=== PATIENT | female | born 1955 | race Caucasian/White ===

== ENCOUNTER → 2018-05-18 | Outpatient (CLI) | payer MEDICARE ==
--- NOTE | 2018-05-18 13:47 | BD ---
EXAMINATION TYPE: Axial Bone Density DATE OF EXAM: 05/18/2018 COMPARISON: 11/12/2015 CLINICAL HISTORY: Osteoporosis per order. Height: 65 IN Weight: 210 LBS FRAX RISK QUESTIONS: Rheumatoid Arthritis: YES RISK FACTORS HISTORY OF: Surgery to Spine: L SPINE When: AGE 51 AND 62 Family History of Osteoporosis: MOTHER Active: YES Postmenopausal woman: AGE 51 MEDICATIONS: Prednisone or other steroids: YES PREDNISONE 10 MG FOR 5 WEEKS. ALSO GETS A METHYLPREDNISONE SHOT E VERY 3 MONTHS. Thyroid Medications: YES Which medication: Levothyroxine How Lon+ YEARS Additional Medications: PREDNISONE 10 MG.(ONLY 1 WEEK LEFT), LEVOTHYROXINE, METHOTREXATE, PAXIL, HYZ AAR, FOLIC ACID, VITAMIN, EXAM MEASUREMENTS: Bone mineral densitometry was performed using the [employer] System. Bone mineral density about the R hip (g/cm2): 0.931 Bone mineral density about the L hip (g/cm2): 0.876 T Score values are as follows: -----R Neck: -0.8 -----L Neck: -1.2 -----R Total: -0.3 -----L Total: -0.8 Bone mineral density has: Decreased -2.7% since study of: 11/12/2015 Bone mineral density about the L Wrist (g/cm2): 0.610 T Score values are as follows: -----Dist. R+U: -2.3 -----Prox. R+U: -0.6 -----Radius total: -1.1 Bone mineral density BASELINE IMPRESSION: Osteopenia (T Score between -2.5 and -1) remains present. There remains slightly increased risk of fracture and the patient may be considered for treatment. Re-Screen 2-5 years. NOTE: T-SCORE=SD OF THE YOUNG ADULT MEAN.
--- NOTE | 2018-05-19 11:18 | MM ---
Reason for exam: screening (asymptomatic). Last mammogram was performed 2 years and 6 months ago. History: Patient is postmenopausal. Excisional biopsy of the left breast, 1989. Took hormonal contraceptives for 6 months. Physical Findings: A clinical breast exam by your physician is recommended on an annual basis and results should be correlated with mammographic findings. MG Screening Mammo w CAD Bilateral CC and MLO view(s) were taken. Prior study comparison: November 12, 2015, bilateral MG screening mammo w CAD. February 24, 2012, bilateral digital screening mammo w/CAD. There are scattered fibroglandular densities. No suspicious abnormality. No significant changes when compared with prior studies. ASSESSMENT: Negative, BI-RAD 1 RECOMMENDATION: Routine screening mammogram of both breasts in 1 year.
== END | disposition home or self-care (01) ==
LOC: RADMAMWWP 08:35
PROVIDERS: ATTEND Family Medicine
DX: Z12.31 Encounter for screening mammogram for malignant neoplasm of breast (principal); M85.80 Other specified disorders of bone density and structure, unspecified site; M81.0 Age-related osteoporosis without current pathological fracture
CPT/HCPCS: 77067; 77080

== ENCOUNTER 2018-10-03 09:54 | Day surgery (SDC) | payer MEDICARE ==
[2018-09-29 14:04] VITALS: BMI 34.9
[~2018-10-03 09:54] MED LIST: LACTATED RINGERS 1,000 ML IV SCH; LIDOCAINE 1% 20 ML VIAL (10MG/ML) FOR IV START INTRADERMA PRN
[2018-10-03 10:16] VITALS: RESP 16; TEMP 98.6
[2018-10-03] MEDS ORDERED: PROPOFOL 10 MG/ML 20 ML VIAL IV ONE (11:01)
--- NOTE | 2018-10-03 11:02 | P.GSHP ---
History of Present Illness H&P Date: 10/03/18 Chief Complaint: Screening colonoscopy, family history of colon cancer This is a 63-year-old female who presents today for colonoscopy. Patient has a family history of colon cancer. Her brother has colon cancer. His last colonoscopy was over 8 years ago. Past Medical History Past Medical History: Hypertension, Rheumatoid Arthritis (RA), Thyroid Disorder History of Any Multi-Drug Resistant Organisms: None Reported Past Surgical History: Back Surgery Additional Past Surgical History / Comment(s): COLONOSCOPY. LUMBAR FUSION X2. Past Anesthesia/Blood Transfusion Reactions: No Reported Reaction Smoking Status: Former smoker - Past Family History Brother(s) Family Medical History: Cancer Additional Family Medical History / Comment(s): COLON CA Medications and Allergies Home Medications Medication Instructions Recorded Confirmed Type Krill Oil 1,000 mg PO DAILY 09/29/18 10/03/18 History Levothyroxine Sodium [Levoxyl] 125 mcg PO DAILY 09/29/18 10/03/18 History Losartan/Hydrochlorothiazide 1 each PO DAILY 09/29/18 10/03/18 History [Hyzaar 50-12.5 Tablet] Meloxicam [Mobic] 7.5 mg PO DAILY 09/29/18 10/03/18 History Methotrexate Sodium [Methotrexate] 8 tab PO MO 09/29/18 10/03/18 History Multivitamins, Thera [Multivitamin 1 tab PO DAILY 09/29/18 09/29/18 History (formulary)] PARoxetine HCL [Paxil] 40 mg PO DAILY 09/29/18 10/03/18 History Allergies Allergy/AdvReac Type Severity Reaction Status Date / Time No Known Allergies Allergy Verified 10/03/18 10:08 Surgical - Exam Vital Signs Temp Pulse Resp BP Pulse Ox 98.6 F 61 16 193/83 97 10/03/18 10:15 10/03/18 10:15 10/03/18 10:15 10/03/18 10:15 10/03/18 10:15 - General well developed, well nourished, no distress - Eyes PERRL - ENT normal pinna - Neck no masses - Respiratory normal expansion - Cardiovascular Rhythm: regular - Abdomen Abdomen: soft, non tender Assessment and Plan Assessment: We'll perform colonoscopy.
--- NOTE | 2018-10-03 11:19 | P.OP ---
Date of Procedure: 10/03/18 Preoperative Diagnosis: Screening colonoscopy Family history of colon Cancer Postoperative Diagnosis: Normal colonoscopy, poor prep Procedure(s) Performed: Colonoscopy Anesthesia: MAC Surgeon: Yusuf Lindo Pathology: none sent Condition: stable Disposition: PACU Description of Procedure: The patient's placed on the endoscopy table in the lateral position. She received IV sedation. Digital rectal exam was performed which revealed no abnormalities. The flexible colonoscope was then placed patient anus and passed throughout the entire colon. The colon prep was very poor. There was a large amount liquid stool. The cecum, ascending and transverse colon appeared normal. The descending and sigmoid colon appeared normal. The scope was then brought back the rectum and this appeared normal. The colonoscopy appeared normal. However there was a very poor colon prep with large amount liquid stool throughout the colon. This limited the view of the mucosa. The scope was withdrawn from patient.
[2018-10-03 11:53] VITALS: BP 163/81; PULSE 67
== END 2018-10-03 11:59 | disposition home or self-care (01) ==
LOC: ORWHC2ENDO 09:54
PROVIDERS: ATTEND Surgery
DX: Z12.11 Encounter for screening for malignant neoplasm of colon (principal); I10 Essential (primary) hypertension; M06.9 Rheumatoid arthritis, unspecified; Z79.899 Other long term (current) drug therapy; Z80.0 Family history of malignant neoplasm of digestive organs; Z87.891 Personal history of nicotine dependence

== ENCOUNTER → 2019-06-08 | Outpatient (CLI) | payer MEDICARE ==
--- NOTE | 2019-06-09 12:14 | MM ---
Reason for exam: screening (asymptomatic). Last mammogram was performed 1 year and 1 month ago. History: Patient is postmenopausal. Excisional biopsy of the left breast, 1989. Took hormonal contraceptives for 6 months. Physical Findings: A clinical breast exam by your physician is recommended on an annual basis and results should be correlated with mammographic findings. MG 3D Screening Mammo W/Cad Bilateral CC and MLO view(s) were taken. Prior study comparison: May 18, 2018, bilateral MG screening mammo w CAD. November 12, 2015, bilateral MG screening mammo w CAD. There are scattered fibroglandular densities. No suspicious abnormality. No significant changes when compared with prior studies. ASSESSMENT: Negative, BI-RAD 1 RECOMMENDATION: Routine screening mammogram of both breasts in 1 year. Manage on a clinical basis with regard to chronic left nipple pain and right axillary lesion drained yesterday. Patient following with a surgeon. Ultrasound could be considered.
== END | disposition home or self-care (01) ==
LOC: RADMAMWWP 07:57
PROVIDERS: ATTEND Family Medicine
DX: Z12.31 Encounter for screening mammogram for malignant neoplasm of breast (principal)
CPT/HCPCS: 77063; 77067

== ENCOUNTER → 2019-08-28 | Outpatient (CLI) | payer MEDICARE ==
[2019-08-28 17:55] LABS: HCT 41.5 % (34.0-46.0); HGB 13.5 gm/dL (11.4-16.0); MCH 29.4 pg (25.0-35.0); MCHC 32.6 g/dL (31.0-37.0); MCV 90.3 fL (80.0-100.0); Mean Platelet Volume 7.5; Platelet Count 304 k/uL (150-450); RBC 4.59 m/uL (3.80-5.40); WBC 12.2 k/uL (3.8-10.6)
[2019-08-28 18:04] LABS: INR 0.9 (<1.2); Partial Thromboplastin Time 24.4 sec (22.0-30.0); Prothrombin Time 9.7 sec (9.0-12.0)
[2019-08-28 18:10] LABS: ALT 19 U/L (4-34); AST 30 U/L (14-36); African American GFR (CKD) >90 (>60 ml/min/1.73 sqM); Albumin 4.7 g/dL (3.5-5.0); Alkaline Phosphatase 84 U/L (38-126); Anion Gap 9 mmol/L; Blood Urea Nitrogen 18 mg/dL (7-17); Calcium 10.1 mg/dL (8.4-10.2); Carbon Dioxide 29 mmol/L (22-30); Chloride 104 mmol/L (98-107); Glucose 84 mg/dL (74-99); Non-African American GFR(CKD) >90 (>60 ml/min/1.73 sqM); Potassium 3.5 mmol/L (3.5-5.1); Sodium 142 mmol/L (137-145); Total Bilirubin 0.3 mg/dL (0.2-1.3); Total Protein 7.4 g/dL (6.3-8.2)
== END | disposition home or self-care (01) ==
LOC: LABPAT 16:21
PROVIDERS: ATTEND Orthopaedic Surgery Sports Medicine
DX: Z01.812 Encounter for preprocedural laboratory examination (principal); M17.12 Unilateral primary osteoarthritis, left knee; Z51.81 Encounter for therapeutic drug level monitoring
CPT/HCPCS: 80053; 85027; 85610; 85730; 87070

== ENCOUNTER 2019-09-06 10:47 | Day surgery (SDC) | payer MEDICARE ==
[2019-08-31 14:01] VITALS: BMI 33.9
[~2019-09-06 10:47] MED LIST changes: +ACETAMINOPHEN TAB 500 MG TAB PO ONE; +GABAPENTIN 300 MG CAP PO ONE; -LACTATED RINGERS 1,000 ML IV SCH; -LIDOCAINE 1% 20 ML VIAL (10MG/ML) FOR IV START INTRADERMA PRN; +MELOXICAM 7.5 MG TAB PO ONE; +ONDANSETRON 4 MG/2 ML VIAL IVP ONE; +ROPIVACAINE 246.25 MG, EPINEPHrine 0.5 MG, KETOROLAC 30 MG, cloNIDine HCL/PF 80 MCG, WA... MISCELLANE ONE; +TRANEXAMIC ACID 1,000 MG in SODIUM CHLORIDE 0.9% 100 ML IVPB ONE
[2019-09-06] MEDS ORDERED: LIDOCAINE 1% 20 ML VIAL (10MG/ML) FOR IV START INTRADERMA ONE (11:29)
[2019-09-06] MEDS ORDERED: LACTATED RINGERS 1,000 ML IV ONE ×2 (11:29→13:56)
[2019-09-06] MEDS ORDERED: DEXAMETHASONE SOD PHOSPHATE 10 MG/ML 1 ML VIAL IV ONE (11:30)
[2019-09-06] MEDS ORDERED: MIDAZOLAM 2 MG/2 ML VIAL IV ONE (11:43)
[2019-09-06] MEDS ORDERED: ROPIVACAINE 0.2%-NS ON-Q PUMP 1,090 MG, EMPTY PAIN BALL 1 EACH MISCELLANE PRN (11:59)
--- NOTE | 2019-09-06 12:01 | P.ANPRN ---
Procedure Note - Anesthesia - Nerve Block Performed Left Adductor Canal Infusion Time Out Performed: Yes Date of Procedure: 09/06/19 Procedure Start Time: 11:43 Procedure Stop Time: 11:54 Location of Patient: PreOp Indication: Acute Post-Operative Pain, Requested by Surgeon Sedation Type: Sedate with meaningful contact maintained Preparation: Sterile Prep, Sterile Dressing Position: Supine Catheter: Indwelling Needle Types: Pajunk Needle Gauge: 21 Ultrasound used to visualize needle placement: Yes Ultrasound used to observe medication spread: Yes Blood Aspirated: No Pain Paresthesia on Injection Noted: No Resistance on Injection: Normal Image Stored and Saved: Yes Events: Uneventful and Well Tolerated (ropi .5% 20cc plus dexamethasone 4mg)
[2019-09-06] MEDS ORDERED: NA PHOS,M-B/NA PHOS,DI-BA 133 ML ENEMA RECTAL PRN (12:07)
[2019-09-06] MEDS ORDERED: ONDANSETRON 4 MG/2 ML VIAL IVP PRN (12:07)
[2019-09-06] MEDS ORDERED: HYDROmorphone 0.5 MG/0.5 ML SYRINGE IVP PRN ×2 (12:07)
[2019-09-06] MEDS ORDERED: HYDROcodone/APAP 5-325MG 1 EACH TAB PO PRN (12:07)
[2019-09-06] MEDS ORDERED: traMADol 50 MG TAB PO PRN (12:07)
[2019-09-06] MEDS ORDERED: NALOXONE 0.4 MG/ML 1 ML VIAL IV PRN (12:07)
[2019-09-06] MEDS ORDERED: HYDROmorphone 1 MG/ML 1 ML SYRINGE IVP PRN (12:07)
[2019-09-06] MEDS ORDERED: ACETAMINOPHEN TAB 325 MG TAB PO PRN (12:07)
[2019-09-06] MEDS ORDERED: BISACODYL 10 MG SUPP RECTAL PRN (12:07)
[2019-09-06] MEDS ORDERED: MAGNESIUM HYDROXIDE 2,400 MG/10 ML CUP PO PRN (12:07)
[2019-09-06] MEDS ORDERED: DIAZEPAM 5 MG TAB PO PRN (12:07)
[2019-09-06] MEDS ORDERED: MIDAZOLAM 2 MG/2 ML VIAL ONE (12:29)
[2019-09-06] MEDS ORDERED: hydrALAZINE HCL 20 MG/ML 1 ML VIAL ONE (12:29)
[2019-09-06] MEDS ORDERED: TRANEXAMIC ACID 1,000 MG/10 ML VIAL ONE (12:29)
[2019-09-06] MEDS ORDERED: PROPOFOL 10 MG/ML 20 ML VIAL IV ONE (12:29)
[2019-09-06] MEDS ORDERED: LABETALOL 5 MG/ML VIAL MDV ONE (12:29)
[2019-09-06] MEDS ORDERED: ceFAZolin 3,000 MG in SODIUM CHLORIDE 0.9% IRRIGATIO 3,000 ML IRRIGATION ONE (12:29)
[2019-09-06] MEDS ORDERED: NEOSTIGMINE 1 MG/ML 10 ML VIAL ONE (12:29)
[2019-09-06] MEDS ORDERED: ROCURONIUM BROMIDE 10 MG/ML 10 ML VIAL IV ONE (12:29)
[2019-09-06] MEDS ORDERED: fentaNYL (PF) 50 MCG/ML 2 ML AMP ONE (12:29)
[2019-09-06] MEDS ORDERED: SUCCINYLCHOLINE CHLORIDE 100 MG/5 ML SYR IV ONE (12:29)
[2019-09-06] MEDS ORDERED: GLYCOPYRROLATE 0.2 MG/ML 2 ML VIAL ONE (12:29)
[2019-09-06] MEDS ORDERED: SODIUM CHLORIDE 0.9% 100 ML BAG ONE (12:29)
[2019-09-06] MEDS: HYDROmorphone 1 MG/ML 1 ML SYRINGE IVP ONE ×2 (15:31→15:42)
--- NOTE | 2019-09-06 15:42 | XR ---
EXAMINATION TYPE: XR knee limited LT DATE OF EXAM: 09/06/2019 CLINICAL HISTORY: Left knee pain and arthritis status post total knee replacement. TECHNIQUE: Portable AP and crosstable lateral views of the left knee are obtained immediately postop eratively. COMPARISON: None FINDINGS: Metallic hardware from total left knee arthroplasty is seen and appears satisfactory in al ignment and position. There is evidence of recent surgery with diffuse subcutaneous gas soft tissue swelling noted. IMPRESSION: METALLIC HARDWARE FROM TOTAL LEFT KNEE ARTHROPLASTY IS SATISFACTORY IN ALIGNMENT.
[2019-09-06] MEDS: LACTATED RINGERS 1,000 ML IV SCH ×2 (16:20→23:48)
[2019-09-06] MEDS: PARoxetine 20 MG TAB PO SCH (17:33)
[2019-09-06] MEDS: ASPIRIN 325 MG TAB PO SCH (20:26)
[2019-09-06] MEDS ORDERED: SENNOSIDES-DOCUSATE SODIUM 1 EACH TAB PO SCH (21:00)
[2019-09-06] MEDS ORDERED: TEMAZEPAM 15 MG CAP PO PRN (21:00)
--- NOTE | 2019-09-06 23:56 | OP ---
OPERATIVE REPORT DATE OF PROCEDURE: 09/06/2019 SURGEON: Faisal Delacruz MD DIGITAL MARKETING COORDINATOR: Luis Johnson PA-C. PREOPERATIVE DIAGNOSIS: Left knee osteoarthrosis. POSTOPERATIVE DIAGNOSIS: Left knee osteoarthrosis. OPERATION: Left total knee arthroplasty. ANESTHESIA: General endotracheal. ESTIMATED BLOOD LOSS: 400 mL. TOURNIQUET: Tourniquet time was 18 minutes at 250 mmHg. COMPLICATIONS: None apparent. DRAINS: None. DISPOSITION: Post-Anesthesia Care Unit. INDICATIONS: Odilia is a very pleasant 64-year-old female with longstanding history of left knee pain. History and physical examination are consistent with advanced left knee osteoarthrosis. She has been through significant nonoperative management up to this point. Further treatment options were discussed, and she decided to go forward with left total knee arthroplasty. The risks of the procedure were discussed with her in detail. These risks include but are not limited to risk of infection, nerve damage, bleeding, pain, and a risk of deep vein thrombosis which could lead to fatal pulmonary embolism. There is also a risk of loosening of the implant which could require revision operation. The patient understands these risks. All of her questions were answered to her satisfaction. Appropriate informed consent was obtained. DESCRIPTION OF THE PROCEDURE: The patient was identified in the preoperative holding area. Surgical site was marked by both the patient and myself. She was given 2 grams of Ancef IV for prophylactic purposes. She was then transferred to the operative suite, where she was placed supine on the operating room table. Spinal anesthetic was then administered and dosed per the anesthesia department without apparent complication. Examination under anesthesia was then performed. The patient had a fairly significant flexion contracture of about 5 to 10 degrees. She had 90 degrees of flexion, and the medial collateral ligament, lateral collateral ligament and posterior cruciate ligaments were stable. The tourniquet was then placed high on the left upper thigh, well padded in preparation for surgery. The patient's left lower extremity was then prepped and draped in the usual sterile fashion. A standard surgical pause was then undertaken to ensure that we were operating on the correct site and that appropriate preoperative antibiotics had been given. All staff in the room were in agreement and we proceeded. The outlines of the patella were marked with a surgical pen. A planned 12 cm vertical incision centered over the patella was marked with a surgical pen. The incision was then made with a 10-blade scalpel. Dissection was carried down sharply to the overlying fascia. Great care was taken to minimize the skin flaps. The knee was then exposed using a standard medial parapatellar approach. A small cuff of quadriceps tendon was then left for suturing. Hemostasis was achieved with the electrocautery. She was in a quite a bit of valgus preoperatively. A very minimal to no medial release was then made. Just enough was made to place the medial retractors. The medial meniscus was then excised as well. The lateral meniscus was also released anteriorly. The leg was then externally rotated. The patella was everted. The knee was flexed. The retractors were then placed to protect the collateral ligaments. I then proceeded to remove the infrapatellar fat pad. This was excised sharply tangentially with the fibers of the patellar tendon. I then proceeded to remove the peripheral osteophytes. This was done with a rongeur. I then proceeded with the distal femoral resection. She did have a fairly significant flexion contracture. A planned 11 mm resection was then done. The femoral canal was then entered in the midline of the femur approximately 10 mm anterior to the origin of the posterior cruciate ligament. The kareen was then advanced down to the center of the femur and placed intramedullary. Based on the preoperative radiographs, the angle between the anatomic and mechanical axes of the femur was approximately 4 to 5 degrees. The valgus angle of the distal femoral cutting guide was then set at 4 degrees for the left knee. The distal femoral cutting guide was then advanced over the intramedullary kareen. This was seated firmly against the femur. I then, as mentioned, planned to take 11 mm off the distal femur. The cutting block was then secured onto the femur with pins. The jig was removed and the distal femoral cut was made through the slot of the block. The pins were then removed and the distal femoral cutting block was removed. The accuracy of the distal femoral cuts was checked with 2 flat bars. I then proceeded with femoral sizing. The posterior referencing sizing guide was held firmly against the resected distal surface of the femur. The posterior condyles were resting on the posterior plane of the guide. The sizing stylus was then placed onto the anterior femur. The size was measured as a size 8. I then assessed for femoral rotation. The plan was for 3 degrees of external rotation. Three degrees of external rotation was placed onto the jig. These holes were then marked. I then confirmed the rotation by 3 separate methods. This was done using the epicondylar axis as well as Whitesides line and posterior referencing. It was deemed that the external rotation was proper. I then went forward with placing the femoral cutting block. This was placed over the previously placed pin holes. The Jose G wing was then placed onto the anterior slots to ensure that we would not notch the anterior femur with the anterior femoral cut. I then proceeded with the anterior femoral cut. This was flush with the anterior cortex of the femur. The posterior cuts were then made followed by the anterior chamfer cut and then the posterior chamfer cuts. The cutting block was then removed. Throughout the resection, the collateral ligaments were protected with retractors. I then placed a trial size 8 femur. It fit very nicely medial to lateral and fit flush with the distal end of the femur. The drill holes were then made. I then proceeded with the tibial cut. I planned for a cruciate-retaining knee. The guide was placed and set for varus, valgus and for slope. The height was set for an approximate 2 mm resection from the lateral tibial plateau, which was the lower side. I was happy with the alignment and the amount of resection. The cutting block was then pinned to the proximal tibia. The alignment kareen was removed and the proximal tibia was resected with a reciprocating saw. Again this was done with retractors protecting the collateral ligaments as well as the posterior cruciate ligament. I then proceeded to evaluate the flexion and extension gaps. A 10 mm block was then placed. The flexion and extension gaps were equal. I then proceeded with resection of the posterior osteophytes. She had very extensive posterior osteophytes. This was done using a curved osteotome. This resected the posterior osteophytes, and posterior capsule stripping was done off the posterior aspect of the femur. The osteophytes were then removed. I then proceeded with resection of the patella. The thickness of the patella was measured using the caliper. The thickness was 22 mm. The thickness of the anticipated patellar dome was then taken into account. The resection was then performed and confirmed to be equal in 4 quadrants using a caliper. Approximately 14 mm of bone remained after the resection. A 32 x 8.5 standard patellar trial was then placed. The holes were drilled and the trial was then placed. I then proceeded with sizing the tibial plate. A size D tibial plate fit very nicely. I then placed the trial femur, the tibial tray and the patellar button. A 10 mm trial insert was also placed. She was tight laterally. I then proceeded to piecrust the posterolateral capsule. I also released the superior portion of the iliotibial band off of the tibia. This balanced the knee much better. The components then fit very nicely. She has full extension and flexion. The extension and flexion gaps were equal and stable to both varus and valgus stress. The patella tracked appropriately. Tibial tray rotation was then marked with a Bovie. This was externally rotated properly. I then proceeded with tibial preparation. I first drilled the femoral holes and removed the femoral component. The tibial tray was then set for proper external rotation as well as mediolateral placement onto the tibia. It was then pinned into place. I then proceeded with punching the keel. I then decided to proceed with cementing of all of our components. The knee was thoroughly irrigated with sterile saline solution via pulse lavage. The lateral geniculate artery was identified and cauterized. All blood was removed from the bone of the tibia, femur and patella with pulse lavage. I then proceeded with cementing. Two packs of antibiotic bone cement were prepared on the back table by the surgical appliance fitter. I then proceeded with cementing of the tibia first. The cement was impacted into the keel as well as deeply seated into the bone. A second coat of cement was then placed. The tibia was then impacted into place. Excess cement was removed with Rachel's and Joker's. I then proceeded with cementing of the femoral component. The femoral component was also cemented using standard technique. Excess cement was removed. A 10 mm trial insert was then placed into the knee. It was brought into full extension with a constant axial load placed until the cement had hardened. The patellar component was then cemented. This was held firmly with a compressive device until the cement had dried. When the cement had dried, the knee was taken out of extension. All excess cement was removed from around the prosthesis. I then trialed the knee with a 10 mm insert. The flexion and extension gaps were appropriate. The knee was stable. It came into full extension. I decided to go forward with a 10 mm medial-congruent, cruciate-retaining tibial insert. Polyethylene was then placed onto the tibial tray and locked into place. The knee was then reduced. The knee was again further irrigated with sterile saline solution with antibiotic added. The tourniquet was then deflated. The total tourniquet time for the procedure was 18 minutes at 250 mmHg. Of note, the tourniquet was put up only for the cementing part of the case. Final components were a Nandini Persona size 8 cruciate-retaining femoral component, a size D tibial tray, a 10 mm medial-congruent, cruciate-retaining polyethylene insert, and a 32 x 8.5 patella. I then proceeded with closure. Again the knee was thoroughly irrigated. The quadriceps tendon and the medial retinaculum were reapproximated with a #2 Ethibond suture. The extensor mechanism was then closed with a running #2 Quill suture. Subcutaneous tissues were then closed with 2-0 Vicryl interrupted suture. The skin was closed with a running 3-0 Quill suture. Dermabond was applied to the incision. Sterile compressive dressings were then applied. All sponge and needle counts were deemed correct prior to closure. The patient tolerated the procedure without apparent complication. She was transferred to the recovery room in stable condition. MMODL / IJN: [id number] /
[2019-09-07] MEDS: HYDROcodone/APAP 10-325MG 1 EACH TAB PO PRN ×3 (00:21→11:20)
[2019-09-07] MEDS ORDERED: LEVOTHYROXINE 125 MCG TAB PO SCH (06:30)
[2019-09-07 07:40] LABS: Basophils # (A) 0.1 k/uL (0-0.2); Basophils % (A) 0 %; Eosinophils # (A) 0.1 k/uL (0-0.7); Eosinophils % (A) 0 %; HCT 29.6 % (34.0-46.0); Lymphocytes # (A) 1.2 k/uL (1.0-4.8); Lymphocytes % (A) 6 %; MCH 29.7 pg (25.0-35.0); MCHC 32.9 g/dL (31.0-37.0); MCV 90.2 fL (80.0-100.0); Mean Platelet Volume 7.4; Monocytes # (A) 0.6 k/uL (0-1.0); Monocytes % (A) 4 %; Neutrophils % (A) 88 %; Platelet Count 286 k/uL (150-450); RBC 3.28 m/uL (3.80-5.40); RDW 13.7 % (11.5-15.5); WBC 18.1 k/uL (3.8-10.6)
[2019-09-07 07:56] LABS: HGB 9.7 gm/dL (11.4-16.0)
[2019-09-07 08:36] VITALS: BP 126/60; PULSE 95; RESP 17; TEMP 98.8
[2019-09-07] MEDS: LACTATED RINGERS 1,000 ML IV SCH (08:48)
[2019-09-07] MEDS ORDERED: FOLIC ACID 1 MG TAB PO SCH (09:00)
[2019-09-07] MEDS ORDERED: PRAVASTATIN SODIUM 20 MG TAB PO SCH (09:00)
[2019-09-07] MEDS ORDERED: LOSARTAN-HCTZ 50-12.5 MG 1 EACH TAB PO SCH (09:00)
[2019-09-07] MEDS ORDERED: CHOLECALCIFEROL 1,000 UNIT TAB PO SCH (09:00)
--- NOTE | 2019-09-07 09:41 | P.PN ---
Progress Note - Text Progress Note Date: 09/07/19 Postoperative day # 1 status post total knee arthroplasty, under spinal anesthesia, and adductor canal catheter placed for postoperative analgesia, currently at ropivacaine 0.2% 8 mL per hour and continuous infusion, visual analogue scale is 3/10, patient using oral pain medication for breakthrough pain. Assessment and plan= Acute postoperative pain, adductor canal catheter for pain control, pain is well controlled we'll continue the same management.
--- NOTE | 2019-09-07 10:10 | P.DS ---
Providers Attending physician: Faisal Delacruz Consults: 09/06/19 16:22 Consult Physician Routine Consulting Provider: Mathew Hudson Consult Reason/Comments: medical management Do you want consulting provider notified?: Already Contacted Primary care physician: Evgeny Erickson - Discharge Diagnosis(es) (1) Status post total left knee replacement Patient was admitted to the OR on 09/06/2019 to undergo a left total knee a rthroplasty. She had failed conservative measures as an outpatient and desired to proceed with elective surgery after given informed consent. She underwent the above procedure which she tolerated well without complication. Postoperative hospital course has remained without complication. On day of discharge she is afebrile, vital signs stable, labs within acceptable ranges, tolerating by mouth meds and diet, voiding without difficulty, positive flatus, denies abdominal pain or calf pain, pain is controlled on oral pain medication and has no new complaints. Wound is benign, neurovascular status is intact, calf is soft and nontender, abdomen soft and nontender. Review of systems is negative for numbness, tingling, fever, chills, chest pain, shortness of breath, nausea, vomiting, dizziness, headaches, slurred speech or other Current Visit: Yes Status: Acute Priority: Medium Procedures: Left TKA Patient Condition at Discharge: Good Plan - Discharge Summary Discharge Rx Participant: Yes New Discharge Prescriptions: New Aspirin 325 mg PO BID #60 tab Docusate [Colace] 100 mg PO BID #60 capsule HYDROcodone/APAP 7.5-325MG [Hickman 7.5-325] 1 - 2 each PO Q6HR PRN #56 tab PRN Reason: Pain No Action Multivitamins, Thera [Multivitamin (formulary)] 1 tab PO DAILY Meloxicam [Mobic] 7.5 mg PO DAILY PARoxetine HCL [Paxil] 40 mg PO QAM Losartan/Hydrochlorothiazide [Hyzaar 50-12.5 Tablet] 1 each PO QAM Levothyroxine Sodium [Levoxyl] 125 mcg PO QAM Methotrexate Sodium [Methotrexate] 10 tab PO MO Cholecalciferol [Vitamin D3 (25 Mcg = 1000 Iu)] 2,000 unit PO DAILY Pravastatin Sodium [Pravachol] 20 mg PO DAILY Folic Acid 0.8 mg PO DAILY Acetaminophen Tab [Tylenol Tab] 325 - 650 mg PO Q4H PRN PRN Reason: Pain Discharge Medication List Levothyroxine Sodium [Levoxyl] 125 mcg PO QAM 09/29/18 [History] Losartan/Hydrochlorothiazide [Hyzaar 50-12.5 Tablet] 1 each PO QAM 09/29/18 [History] Meloxicam [Mobic] 7.5 mg PO DAILY 09/29/18 [History] Methotrexate Sodium [Methotrexate] 10 tab PO MO 09/29/18 [History] Multivitamins, Thera [Multivitamin (formulary)] 1 tab PO DAILY 09/29/18 [History] PARoxetine HCL [Paxil] 40 mg PO QAM 09/29/18 [History] Acetaminophen Tab [Tylenol Tab] 325 - 650 mg PO Q4H PRN 08/31/19 [History] Cholecalciferol [Vitamin D3 (25 Mcg = 1000 Iu)] 2,000 unit PO DAILY 08/31/19 [History] Folic Acid 0.8 mg PO DAILY 08/31/19 [History] Pravastatin Sodium [Pravachol] 20 mg PO DAILY 08/31/19 [History] Aspirin 325 mg PO BID #60 tab 09/07/19 [Rx] Docusate [Colace] 100 mg PO BID #60 capsule 09/07/19 [Rx] HYDROcodone/APAP 7.5-325MG [Hickman 7.5-325] 1 - 2 each PO Q6HR PRN #56 tab 09/07/19 [Rx] Follow up Appointment(s)/Referral(s): [facility], [NON-STAFF] - Faisal Delacruz MD [STAFF PHYSICIAN] - 09/18/19 1:00 pm Activity/Diet/Wound Care/Special Instructions: Keep wound clean and dry Take meds as directed Follow-up with Dr. Delacruz in office Weight bear as tolerated May shower in 3 days if no bleeding Discharge Disposition: HOME WITH HOME HEALTH SERVICES
[2019-09-07] MEDS: ASPIRIN 325 MG TAB PO SCH (10:15)
[2019-09-07] MEDS: PARoxetine 20 MG TAB PO SCH (10:16)
[2019-09-08] MEDS ORDERED: MULTIVITAMINS, THERA 1 EACH TAB PO SCH (12:00)
== END 2019-09-07 11:46 | disposition home health service (06) ==
LOC: OR 10:47 → 4SSUR 14:58 → OR 09-07 11:46
PROVIDERS: ATTEND Orthopaedic Surgery Sports Medicine
DX: M17.12 Unilateral primary osteoarthritis, left knee (principal); M21.062 Valgus deformity, not elsewhere classified, left knee; M25.762 Osteophyte, left knee; E03.9 Hypothyroidism, unspecified; I10 Essential (primary) hypertension; F32.9 Major depressive disorder, single episode, unspecified; E78.5 Hyperlipidemia, unspecified; M06.9 Rheumatoid arthritis, unspecified; Z97.3 Presence of spectacles and contact lenses; Z87.891 Personal history of nicotine dependence; Z98.1 Arthrodesis status; Z79.1 Long term (current) use of non-steroidal anti-inflammatories (NSAID); Z79.890 Hormone replacement therapy; Z79.899 Other long term (current) drug therapy; Z88.0 Allergy status to penicillin
CPT/HCPCS: 97161; 64448; 76942; 85025; 88300; 73560; 27447; C1776; C1713; J2250; J0171; J0360; J1100; J2710; J0690 ×3; J2405; J3010; J1885; J1170; J2795 ×2; J0330; J2704; J0735

== ENCOUNTER 2019-12-10 15:29 | Emergency (ER) | payer MEDICARE ==
[2019-12-10 15:39] VITALS: PULSE 60; RESP 18; TEMP 98.1
[2019-12-10] MEDS ORDERED: oxyCODONE-APAP 7.5-325MG 1 EACH TAB PO STA (15:51)
--- NOTE | 2019-12-10 16:15 | ED ---
Fall HPI - General Chief Complaint: Fall Stated Complaint: Fall,R shoulder pain Time Seen by Provider: 12/10/19 15:41 Source: patient Mode of arrival: wheelchair - History of Present Illness Initial Comments: Patient is 64-year-old female with history of arthritis presenting to emergency Department with a chief complaint of a fall. She states she was in her garden when she tripped and fell forward landing on her right shoulder. Patient reports pain is located mostly around the posterior deltoid region. States she is unable to move her left shoulder. Patient denies any numbness or tingling. States she is still able to move her fingers wrist and elbow. Denies any other injuries. Denies any use of blood thinners. Denies any loss of consciousness. Denies head injury. Patient is requesting oxycodone because that's what she takes at home for chronic pain. She did not take anything prior to ED. states her systolic blood pressure typically runs around 160. States she takes her antihypertensive medication, hydrochlorothiazide and Cozaar,daily as directed. - Related Data Home Medications Medication Instructions Recorded Confirmed Meloxicam [Mobic] 7.5 mg PO DAILY 09/29/18 12/10/19 Methotrexate Sodium [Methotrexate] 25 mg PO MO 09/29/18 12/10/19 Multivitamins, Thera [Multivitamin 1 tab PO DAILY 09/29/18 12/10/19 (formulary)] PARoxetine HCL [Paxil] 40 mg PO DAILY 09/29/18 12/10/19 Cholecalciferol [Vitamin D3 (25 2,000 unit PO DAILY 08/31/19 12/10/19 Mcg = 1000 Iu)] Folic Acid 0.8 mg PO DAILY 08/31/19 12/10/19 Pravastatin Sodium [Pravachol] 20 mg PO HS 08/31/19 12/10/19 Hydrochlorothiazide [Hydrodiuril] 12.5 mg PO DAILY 12/10/19 12/10/19 Levothyroxine Sodium [Synthroid] 125 mcg PO DAILY 12/10/19 12/10/19 Losartan [Cozaar] 50 mg PO DAILY 12/10/19 12/10/19 Previous Rx's Medication Instructions Recorded oxyCODONE-APAP 7.5-325MG [Percocet 1 tab PO Q6HR PRN 3 Days #12 tab 12/10/19 7.5-325 mg] Allergies Allergy/AdvReac Type Severity Reaction Status Date / Time No Known Allergies Allergy Verified 12/10/19 16:29 Review of Systems ROS Statement: Those systems with pertinent positive or pertinent negative responses have been documented in the HPI. ROS Other: All systems not noted in ROS Statement are negative. Past Medical History Past Medical History: Hypertension, Rheumatoid Arthritis (RA), Thyroid Disorder History of Any Multi-Drug Resistant Organisms: None Reported Past Surgical History: Back Surgery Additional Past Surgical History / Comment(s): COLONOSCOPY. LUMBAR FUSION X2. Past Anesthesia/Blood Transfusion Reactions: No Reported Reaction Past Psychological History: No Psychological Hx Reported Smoking Status: Former smoker Past Alcohol Use History: Occasional Past Drug Use History: Marijuana - Past Family History Brother(s) Family Medical History: Cancer Additional Family Medical History / Comment(s): COLON CA General Exam Limitations: no limitations General appearance: alert, in no apparent distress Head exam: Present: atraumatic, normocephalic, normal inspection. Absent: other (Negative Soliman sign, raccoon eyes or hemotympanum.) Eye exam: Present: normal appearance, PERRL, EOMI Pupils: Present: normal accommodation ENT exam: Present: normal exam, normal oropharynx (No oral trauma), mucous membranes moist, TM's normal bilaterally, normal external ear exam Neck exam: Present: normal inspection, full ROM. Absent: tenderness Respiratory exam: Present: normal lung sounds bilaterally. Absent: respiratory distress, wheezes, rales Cardiovascular Exam: Present: regular rate, normal rhythm, normal heart sounds Extremities exam: Present: tenderness (Tenderness along the posterior deltoid. No tenderness along the clavicle. Mild tenderness along the anterior deltoid. No tenderness throughout the upper arm, elbow, forearm or wrist.), normal capillary refill, other (+2 ulnar and radial pulses bilaterally.). Absent: normal inspection (Mild to moderate swelling at the right shoulder. No lacerations, ecchymosis, bony deformities or abrasions appreciated.), full ROM (Unable to move the right shoulder. Limited passive range of motion with abduction above 50.) Back exam: Present: normal inspection, full ROM Neurological exam: Present: alert, oriented X3 Psychiatric exam: Present: normal affect, normal mood Skin exam: Present: warm, dry, intact, normal color Course Vital Signs 05/05/2112/10/19 12/10/19 15:35 16:42 17:30 Temperature 98.1 F Pulse Rate 60 Respiratory 18 Rate Blood Pressure 206/99 223/84 222/89 O2 Sat by Pulse 98 Oximetry 12/10/19 18:23 Temperature 98.1 F Pulse Rate 60 Respiratory 18 Rate Blood Pressure 202/89 O2 Sat by Pulse 98 Oximetry Medical Decision Making - Medical Decision Making Patient is a 64-year-old female presenting to the emergency room for chief complaint of a fall. On exam patient has mild to moderate swelling of her shoulder With limited range of motion. No ecchymosis noted. No numbness no signs of vascular insufficiency. X-ray shows a proximal humeral fracture on the right upper extremity. Possible fourth rib fracture also noted. Patient does not of any pain on full inspiration. Patient given a sling. Patient given analgesia in the ED. She'll be discharged with oxycodone for pain was less than 3 days of medication. Patient vised to follow-up with an business performance specialist. Patient also given her home antihypertensives due to her elevated blood pressure which I suspect is secondary to the pain. Return parameters thoroughly discussed with patient is understanding and agreeable. Case discussed with physician. Disposition Clinical Impression: Fall, Proximal humeral fracture, Rib fracture Disposition: HOME SELF-CARE Condition: Good Instructions (If sedation given, give patient instructions): Arm Fracture in Adults (ED), Rib Fracture (ED) Additional Instructions: Take prescribed medication as directed. Please follow-up with Dr. Delacruz. Return to emergency department if symptoms worsen. Prescriptions: oxyCODONE-APAP 7.5-325MG [Percocet 7.5-325 mg] 1 tab PO Q6HR PRN 3 Days #12 tab PRN Reason: Pain Is patient prescribed a controlled substance at d/c from ED?: No Referrals: Evgeny Erickson DO [Primary Care Provider] - 1-2 days Time of Disposition: 18:11
[2019-12-10] MEDS ORDERED: HYDROmorphone 0.5 MG/0.5 ML SYRINGE IM STA (16:23)
[2019-12-10] MEDS ORDERED: HYDROmorphone 1 MG/ML 1 ML SYRINGE IM STA (16:34)
--- NOTE | 2019-12-10 16:34 | XR ---
Right shoulder HISTORY: Trauma and pain 3 views of the right shoulder There is a comminuted proximal right humeral fracture with displaced fracture fragments, underlying a rthropathy is noted. No evident dislocation. Right lung apex as visualized is unremarkable. Contour a nomaly of the fourth rib posteriorly and laterally may represent a nondisplaced fracture. No evident pneumothorax. There is an acromial spur present. impression: Proximal right humeral fracture, possible fourth rib fracture
[2019-12-10] MEDS ORDERED: HYDROCHLOROTHIAZIDE 12.5 MG CAP PO STA (17:19)
[2019-12-10] MEDS ORDERED: LOSARTAN-HCTZ 50-12.5 MG 1 EACH TAB PO STA (17:20)
[2019-12-10 18:24] VITALS: BP 202/89
== END 2019-12-10 18:15 | disposition home or self-care (01) ==
LOC: EC 15:29
DX: S42.201A Unspecified fracture of upper end of right humerus, initial encounter for closed fracture (principal); S22.39XA Fracture of one rib, unspecified side, initial encounter for closed fracture; I10 Essential (primary) hypertension; M06.9 Rheumatoid arthritis, unspecified; E07.9 Disorder of thyroid, unspecified; Z87.891 Personal history of nicotine dependence; Z79.1 Long term (current) use of non-steroidal anti-inflammatories (NSAID); Z79.890 Hormone replacement therapy; Z79.899 Other long term (current) drug therapy; Z53.8 Procedure and treatment not carried out for other reasons; W01.0XXA Fall on same level from slipping, tripping and stumbling without subsequent striking against object, initial encounter; Y93.89 Activity, other specified; Y92.009 Unspecified place in unspecified non-institutional (private) residence as the place of occurrence of the external cause
CPT/HCPCS: 73030; 99283; 96372; J1170

== ENCOUNTER → 2020-10-01 | Outpatient (CLI) | payer MEDICARE ==
--- NOTE | 2020-10-01 17:51 | BD ---
EXAMINATION TYPE: Axial Bone Density DATE OF EXAM: 10/01/2020 COMPARISON: NONE CLINICAL HISTORY: Height: 5 FT 5 1/4IN Weight: 214 FRAX RISK QUESTIONS: Alcohol (3 or more units per day): NO Family History (Parent hip fracture): NO Glucocorticoids (More than 3mos): NO (Ex: prednisone, prednisolone, methylprednisolone, dexamethasone, and hydrocortisone). History of Fracture in Adulthood: YES Secondary Osteoporosis: 1. Type 1 Diabetes: NO 2. Hyperthyroidism: NO 3. Menopause before 45: NO 4. Malnutrition: NO 5. Chronic liver disease: NO Rheumatoid Arthritis: YES Current Tobacco Use: NO RISK FACTORS HISTORY OF: Surgery to Spine/Hip(right/left)/Wrist (right/left): LUMBAR SURG CAGE AND SCREWS When: AGE 51 AND 62 Family History of Osteoporosis: YES Active: NO Diet low in dairy products/other sources of calcium: NO Postmenopausal woman: AGE 51 Take estrogen and/or progesterone medications: NONE Lost more than 2 inches in height since high school: NO MEDICATIONS: Thyroid Medications: YES Which medication: SYNTHROID How Long: APPROX 25 YEARS Additional Medications: VERAPAMIL, SYNTHROID, PAXIL, METHOTREXATE, HYDROCHLOROTHIAZIDE, FOLIC ACID Additional History: RT SHOULDER FX 2020, CARPAL TUNNEL UNSURE WHICH ONE EXAM MEASUREMENTS: Bone mineral density about the R hip (g/cm2): 0.822 Bone mineral density about the L hip (g/cm2): 0.858 T Score values are as follows: -----R Neck: -1.6 -----L Neck: -1.3 -----R Total: -0.7 -----L Total: -1.0 Bone mineral density has: DECREASED -4.2 % since study of: 2018 Bone mineral density about the L Wrist (g/cm2): 0.583 T Score values are as follows: -----Dist. R+U: -2.5 -----Prox. R+U: -1.0 -----Radius total: -1.5 Bone mineral density has: DECREASED -4.4 % since study of: 2018 IMPRESSION: Osteopenia (T Score between -2.5 and -1). There is slightly increased risk of fracture and the patient may be considered for treatment. Re-Screen 2-5 years. NOTE: T-SCORE=SD OF THE YOUNG ADULT MEAN.
== END | disposition home or self-care (01) ==
LOC: RADBDWWP 15:16
PROVIDERS: ATTEND Internal Medicine Rheumatology
DX: M85.80 Other specified disorders of bone density and structure, unspecified site (principal)
CPT/HCPCS: 77080

== ENCOUNTER 2020-10-04 12:59 | Emergency (ER) | payer MEDICARE ==
[2020-10-04] MEDS ORDERED: METOCLOPRAMIDE 5 MG/ML 2 ML VIAL IVP STA (13:39)
[2020-10-04] MEDS ORDERED: SODIUM CHLORIDE 0.9% 1,000 ML IV STA (13:39)
--- NOTE | 2020-10-04 13:43 | ED ---
General Adult HPI - General Chief complaint: Recheck/Abnormal Lab/Rx Stated complaint: abd pain, elevated BP Source: patient, RN notes reviewed Mode of arrival: ambulatory Limitations: no limitations - History of Present Illness Initial comments: Patient is a 65-year-old female that presents emergency Department with constipation for the last 1-2 months. She was sent here by her primary care physician due to elevated blood pressure and constipation issues. Patient was in no apparent distress or pain while sitting up in bed during the interview and exam. She noted that she spent 5 days since her last bowel movement she does have some tenderness on the left side of her abdomen. She stated that it's normal for her to usually be a little bit constipated but not as bad as a little last 2 months. She denied any chest pain shortness of breath nausea vomiting diarrhea fever fatigue chills weakness numbness tingling. - Related Data Home Medications Medication Instructions Recorded Confirmed Meloxicam [Mobic] 7.5 mg PO DAILY 09/29/18 12/10/19 Multivitamins, Thera [Multivitamin 1 tab PO DAILY 09/29/18 12/10/19 (formulary)] PARoxetine HCL [Paxil] 40 mg PO DAILY 09/29/18 12/10/19 metHOTREXate sodium [Methotrexate] 25 mg PO MO 09/29/18 12/10/19 Cholecalciferol [Vitamin D3 (25 2,000 unit PO DAILY 08/31/19 12/10/19 Mcg = 1000 Iu)] Folic Acid 0.8 mg PO DAILY 08/31/19 12/10/19 Pravastatin Sodium [Pravachol] 20 mg PO HS 08/31/19 12/10/19 Levothyroxine Sodium [Synthroid] 125 mcg PO DAILY 12/10/19 12/10/19 Losartan [Cozaar] 50 mg PO DAILY 12/10/19 12/10/19 hydroCHLOROthiazide [Hydrodiuril] 12.5 mg PO DAILY 12/10/19 12/10/19 Previous Rx's Medication Instructions Recorded oxyCODONE-APAP 7.5-325MG [Percocet 1 tab PO Q6HR PRN 3 Days #12 tab 12/10/19 7.5-325 mg] Metoclopramide [Reglan] 10 mg PO TID PRN #15 tab 10/04/20 Allergies Allergy/AdvReac Type Severity Reaction Status Date / Time No Known Allergies Allergy Verified 10/04/20 13:04 Review of Systems ROS Statement: Those systems with pertinent positive or pertinent negative responses have been documented in the HPI. ROS Other: All systems not noted in ROS Statement are negative. Past Medical History Past Medical History: Hypertension, Rheumatoid Arthritis (RA), Thyroid Disorder History of Any Multi-Drug Resistant Organisms: None Reported Past Surgical History: Back Surgery Additional Past Surgical History / Comment(s): COLONOSCOPY. LUMBAR FUSION X2. Past Anesthesia/Blood Transfusion Reactions: No Reported Reaction Past Psychological History: No Psychological Hx Reported Smoking Status: Former smoker Past Alcohol Use History: Occasional Past Drug Use History: Marijuana - Past Family History Brother(s) Family Medical History: Cancer Additional Family Medical History / Comment(s): COLON CA General Exam Limitations: no limitations General appearance: alert, in no apparent distress Head exam: Present: atraumatic, normocephalic, normal inspection Eye exam: Present: normal appearance, PERRL, EOMI. Absent: scleral icterus, conjunctival injection, periorbital swelling ENT exam: Present: normal exam, mucous membranes moist Neck exam: Present: normal inspection. Absent: tenderness, meningismus, lymphadenopathy Respiratory exam: Present: normal lung sounds bilaterally. Absent: respiratory distress, wheezes, rales, rhonchi, stridor Cardiovascular Exam: Present: regular rate, normal rhythm, normal heart sounds. Absent: systolic murmur, diastolic murmur, rubs, gallop, clicks GI/Abdominal exam: Present: soft, tenderness (Generalized over the left side.), normal bowel sounds. Absent: distended, guarding, rebound, rigid Extremities exam: Present: normal inspection, full ROM, normal capillary refill. Absent: tenderness, pedal edema, joint swelling, calf tenderness Back exam: Present: normal inspection Neurological exam: Present: alert, oriented X3, CN II-XII intact Psychiatric exam: Present: normal affect, normal mood Skin exam: Present: warm, dry, intact, normal color. Absent: rash Course Vital Signs 10/04/20 10/04/20 13:00 14:04 Temperature 98.0 F Pulse Rate 74 64 Respiratory 18 18 Rate Blood Pressure 180/78 180/80 O2 Sat by Pulse 99 95 Oximetry Medical Decision Making - Medical Decision Making 65-year-old female complaining of constipation and elevated blood pressure. Labs, 1 L normal saline, 10 mg of Reglan, KUB ordered. Labs unremarkable. Case discussed with Dr. Marquez, was decided the patient could discharge home with conservative management. - Lab Data Result diagrams: 10/04/20 14:19 10/04/20 14:19 Lab Results 10/04/20 10/04/20 10/04/20 Range/Units 14:19 14:19 14:19 WBC 9.3 (3.8-10.6) k/uL RBC 4.33 (3.80-5.40) m/uL Hgb 13.4 (11.4-16.0) gm/dL Hct 39.2 (34.0-46.0) % MCV 90.5 (80.0-100.0) fL MCH 30.9 (25.0-35.0) pg MCHC 34.2 (31.0-37.0) g/dL RDW 13.9 (11.5-15.5) % Plt Count 291 (150-450) k/uL MPV 7.2 Neutrophils % 74 % Lymphocytes % 17 % Monocytes % 4 % Eosinophils % 4 % Basophils % 1 % Neutrophils # 6.9 (1.3-7.7) k/uL Lymphocytes # 1.5 (1.0-4.8) k/uL Monocytes # 0.3 (0-1.0) k/uL Eosinophils # 0.4 (0-0.7) k/uL Basophils # 0.1 (0-0.2) k/uL Sodium 140 (137-145) mmol/L Potassium 3.7 (3.5-5.1) mmol/L Chloride 103 (98-107) mmol/L Carbon Dioxide 30 (22-30) mmol/L Anion Gap 7 mmol/L BUN 22 H (7-17) mg/dL Creatinine 0.58 (0.52-1.04) mg/dL Est GFR (CKD-EPI)AfAm >90 (>60 ml/min/1.73 sqM) Est GFR (CKD-EPI)NonAf >90 (>60 ml/min/1.73 sqM) Glucose 97 (74-99) mg/dL Calcium 9.8 (8.4-10.2) mg/dL Total Bilirubin 0.7 (0.2-1.3) mg/dL AST 32 (14-36) U/L ALT 23 (4-34) U/L Alkaline Phosphatase 83 (38-126) U/L Total Protein 6.5 (6.3-8.2) g/dL Albumin 4.2 (3.5-5.0) g/dL Urine Color Light Yellow Urine Appearance Clear (Clear) Urine pH 7.0 (5.0-8.0) Ur Specific [place] 1.007 (1.001-1.035) Urine Protein Negative (Negative) Urine Glucose (UA) Negative (Negative) Urine Ketones Negative (Negative) Urine Blood Negative (Negative) Urine Nitrite Negative (Negative) Urine Bilirubin Negative (Negative) Urine Urobilinogen <2.0 (<2.0) mg/dL Ur Leukocyte Esterase Negative (Negative) - Radiology Data Radiology results: report reviewed, image reviewed CT abdomen and pelvis: No bowel obstruction mild to moderate mild colonic fecal stasis Disposition Clinical Impression: Constipation, Gastroparesis Disposition: HOME SELF-CARE Condition: Stable Instructions (If sedation given, give patient instructions): Constipation (ED) Additional Instructions: Please return to the Emergency Department if symptoms worsen or any other concerns. Follow-up primary care 1-2 days. Follow-up with botany laboratory assistant. Take medication as prescribed. Increase oral fluid intake. If any nausea vomiting or diarrhea occurs please return to ER. Prescriptions: Metoclopramide [Reglan] 10 mg PO TID PRN #15 tab PRN Reason: GERD Is patient prescribed a controlled substance at d/c from ED?: No Referrals: Evgeny Erickson DO [Primary Care Provider] - 1-2 days Time of Disposition: 15:16
[2020-10-04 14:42] LABS: Appearance,Urine Clear (Clear); Basophils # (A) 0.1 k/uL (0-0.2); Basophils % (A) 1 %; Bilirubin,Urine Negative (Negative); Color,Urine Light Yellow; Eosinophils # (A) 0.4 k/uL (0-0.7); Eosinophils % (A) 4 %; Glucose,Urine (UA) Negative (Negative); HCT 39.2 % (34.0-46.0); HGB 13.4 gm/dL (11.4-16.0); Ketones,Urine Negative (Negative); Lymphocytes # (A) 1.5 k/uL (1.0-4.8); Lymphocytes % (A) 17 %; MCH 30.9 pg (25.0-35.0); MCHC 34.2 g/dL (31.0-37.0); MCV 90.5 fL (80.0-100.0); Mean Platelet Volume 7.2; Monocytes # (A) 0.3 k/uL (0-1.0); Monocytes % (A) 4 %; Neutrophils # (A) 6.9 k/uL (1.3-7.7); Neutrophils % (A) 74 %; Platelet Count 291 k/uL (150-450); Protein,Urine Negative (Negative); RBC 4.33 m/uL (3.80-5.40); RDW 13.9 % (11.5-15.5); Specific Gravity,Urine 1.007 (1.001-1.035); WBC 9.3 k/uL (3.8-10.6)
[2020-10-04 14:43] LABS: Blood,Urine Negative (Negative); Leukocyte Esterase,Urine Negative (Negative); Nitrite,Urine Negative (Negative); Urobilinogen,Urine <2.0 mg/dL (<2.0)
[2020-10-04 15:02] LABS: ALT 23 U/L (4-34); AST 32 U/L (14-36); African American GFR (CKD) >90 (>60 ml/min/1.73 sqM); Albumin 4.2 g/dL (3.5-5.0); Alkaline Phosphatase 83 U/L (38-126); Anion Gap 7 mmol/L; Blood Urea Nitrogen 22 mg/dL (7-17); Calcium 9.8 mg/dL (8.4-10.2); Carbon Dioxide 30 mmol/L (22-30); Chloride 103 mmol/L (98-107); Glucose 97 mg/dL (74-99); Non-African American GFR(CKD) >90 (>60 ml/min/1.73 sqM); Potassium 3.7 mmol/L (3.5-5.1); Sodium 140 mmol/L (137-145); Total Bilirubin 0.7 mg/dL (0.2-1.3); Total Protein 6.5 g/dL (6.3-8.2)
--- NOTE | 2020-10-04 16:12 | CT ---
EXAMINATION TYPE: CT abdomen pelvis w con DATE OF EXAM: 10/04/2020 HISTORY: Mid Abdominal pain with constipation CT DLP: 1694.6mGycm Automated Exposure Control for Dose Reduction was Utilized. CONTRAST: CT scan of the abdomen and pelvis is performed without oral and with IV Contrast, patient injected wi th 100 mL of Isovue 300. COMPARISON: None. FINDINGS: LUNG BASES: No significant abnormality is appreciated. LIVER/GB: No significant abnormality is appreciated. PANCREAS: No significant abnormality is seen. SPLEEN: No significant abnormality is seen. ADRENALS: No significant abnormality is seen. KIDNEYS: Symmetric cortical medullary uptake and excretion without hydronephrosis seen bilaterally. T here are simple appearing thin-walled cysts of varying size and shape anteriorly in the mid to lower pole level left kidney. Suspect simple cysts but a few lesions may not be entirely simple and may war rant follow-up based on old outside CT and/or MRI correlation. Slight asymmetric enlargement of the l eft kidney versus right kidney. BOWEL: Suboptimal evaluation of bowel without enteric contrast. No suspicious small or large bowel di latation stomach poorly distended and suboptimally evaluated. [id number] fecal prominence in th e transverse and left colon. Redundant sigmoid colon with diverticulosis. No CT evidence for acute di verticulitis. UTERUS/ADNEXA: Anteverted uterus projects to left of midline. LYMPH NODES: No greater than 1cm abdominal or pelvic lymph nodes are appreciated. OSSEOUS STRUCTURES: Postsurgical change to the L2-S1 levels. Multilevel spondylolisthesis. Multilevel disc space narrowing. There is moderate disc space narrowing with endplate sclerosis and vacuum disc phenomenon at L1-L2 level. Thin-walled focal fluid collection or cyst anterior to upper sacrum measu res 3.0 x 2.6 cm of uncertain etiology, perhaps postsurgical seroma related to prior back surgery. Mu ltilevel facet arthropathy. OTHER: No significant additional abnormality is seen. IMPRESSION: No bowel obstruction. Mild to moderate mid colonic fecal stasis.
[2020-10-04] MEDS ORDERED: NA PHOS,M-B/NA PHOS,DI-BA 133 ML ENEMA RECTAL STA (16:35)
[2020-10-04] MEDS ORDERED: amLODIPine 5 MG TAB PO STA (16:58)
[2020-10-04 17:19] VITALS: BP 189/84; PULSE 89; RESP 16; TEMP 98
== END 2020-10-04 17:18 | disposition home or self-care (01) ==
LOC: EC 12:59
DX: K59.00 Constipation, unspecified (principal); K31.84 Gastroparesis; E07.9 Disorder of thyroid, unspecified; I10 Essential (primary) hypertension; M06.9 Rheumatoid arthritis, unspecified; Z79.1 Long term (current) use of non-steroidal anti-inflammatories (NSAID); Z79.899 Other long term (current) drug therapy; Z87.891 Personal history of nicotine dependence
CPT/HCPCS: 36415; 80053; 85025; 81003; 74177; 99284; 96374; 96361; J2765; Q9967

== ENCOUNTER → 2020-11-08 | Outpatient (CLI) | payer MEDICARE ==
--- NOTE | 2020-11-10 14:07 | US ---
EXAMINATION TYPE: US thyroid st tissue head/neck DATE OF EXAM: 11/08/2020 COMPARISON: NONE CLINICAL HISTORY: E04.1 thyroid Nodule. Patient having an exam done at outside facility that showed t hyroid nodule. On thyroid meds. GLAND SIZE: Right Lobe: 4.1 x 1.4 x 1.2 cm Overall Parenchyma: homogenous Left Lobe: 4.3 x 1.8 x 1.7 cm Overall Parenchyma: homogeneous Isthmus Thickness: 0.5 cm NODULES RIGHT: # of nodules measured on right: 2 1. 1.1 X 0.8 x 0.6 cm, mid medial, mixed cystic and solid, hypoechoic nodule, which is wider than t all, with smooth margins, without echogenic foci. Prior size: no prior 2. 0.5 X 0.4 x 0.2 cm, upper lateral, mixed cystic and solid, hypoechoic nodule, which is wider shantel n tall, with smooth margins, without echogenic foci. Prior size: no prior LEFT: # of nodules measured on left: 2- multiple nodules seen, largest measured 1. 1.4 x 1.3 x 0.9 cm, lower mid, solid or almost completely solid, hypoechoic nodule, which is wide r than tall, with smooth margins, without echogenic foci. Prior size: no prior 2. 1.1 X 1.0 x 0.7 cm, mid , solid or almost completely solid, hypoechoic nodule, which is wider t yanes tall, with smooth margins, without echogenic foci. Prior size: no prior ISTHMUS: # of nodules measured in the isthmus: 0 Bilateral neck scanned, no evidence of lymphadenopathy. IMPRESSION: Moderately suspicious nodule left lobe thyroid. Follow-up exam in one year is recommended. 2017 ACR TI-RADS LEVEL: TR-RADS 4 - Moderately Suspicious: Follow if > 1 cm, FNA if > 1.5 cm *Highest TI-RADS level nodule reported
== END | disposition home or self-care (01) ==
LOC: RADUSWWP 13:58
PROVIDERS: ATTEND Family Medicine
DX: E04.1 Nontoxic single thyroid nodule (principal)
CPT/HCPCS: 76536

== ENCOUNTER 2021-01-24 09:18 | Day surgery (SDC) | payer MEDICARE ==
[2021-01-24 10:01] VITALS: RESP 16; TEMP 98.4
[2021-01-24 11:26] VITALS: BP 154/71; PULSE 77
--- NOTE | 2021-01-24 13:22 | US ---
EXAMINATION TYPE: US FNA thyroid first lesion DATE OF EXAM: 01/24/2021 COMPARISON: NONE HISTORY: Thyroid nodule on the left. Maximal barrier technique was utilized. After informed consent, skin overlying the dominant left lob e thyroid nodule was localized with ultrasound and the overlying skin prepped and draped. Ultrasound was utilized using sterile technique. Lidocaine was used for local anesthesia. Five passes with a 25 -gauge needle were made into the nodule and aspirated specimen was submitted to cytology. Following the procedure hemostasis achieved. No immediate complication. The patient discharged in stable cond ition. IMPRESSION: STATUS POST ULTRASOUND GUIDED FINE NEEDLE ASPIRATION OF THYROID NODULE, PATHOLOGY IS PEND ING. THIS PROCEDURE WAS PERFORMED BY THE UNDERSIGNED.
== END 2021-01-24 11:22 | disposition home or self-care (01) ==
LOC: RADPROMAIN 09:18
PROVIDERS: ATTEND Family Medicine
DX: E04.1 Nontoxic single thyroid nodule (principal)
CPT/HCPCS: 10005; 88173; 88305

== ENCOUNTER → 2021-06-04 | Outpatient (CLI) | payer MEDICARE ==
--- NOTE | 2021-06-04 16:10 | US ---
EXAMINATION TYPE: US thyroid st tissue head/neck DATE OF EXAM: 06/04/2021 COMPARISON: 11/08/2020 CLINICAL HISTORY: 66-year-old female E04.2 Nontoxic multinodular goiter. Follow-up thyroid nodules GLAND SIZE: Right Lobe: 3.8 x 1.4 x 1.7 cm Overall Parenchyma: homogenous Left Lobe: 4.6 x 1.5 x 1.8 cm Overall Parenchyma: homogeneous Isthmus Thickness: 0.4 cm NODULES RIGHT: # of nodules measured on right: 2 1. 0.9 X 0.6 x 0.9 cm, mid, mixed, hypoechoic nodule, which is wider than tall, with smooth margins , without echogenic foci. Prior size: 1.1 x 0.8 x 0.6 cm 2. 0.5 X 0.3 x 0.5 cm, upper , solid, hypoechoic nodule, which is wider than tall, with smooth placido ins, without echogenic foci. Prior size: 0.5 x 0.4 x 0.2 cm LEFT: # of nodules measured on left: 2 1. 1.4 X 1.0 x 1.4 cm, lower , solid, hypoechoic nodule, which is wider than tall, with smooth placido ins, without echogenic foci. Prior size: 1.4 x 1.3 x 0.9 cm 2. 1.2 X 0.7 x 1.3 cm, mid, solid, hypoechoic nodule, which is wider than tall, with smooth margin s, without echogenic foci. Prior size: 1.1 x 1.0 x 0.7 cm ISTHMUS: # of nodules measured in the isthmus: 0 Bilateral neck scanned, no evidence of lymphadenopathy. IMPRESSION: The dominant 1.4 cm lower left thyroid nodule is stable. The second dominant 1.3 cm mid left thyroid nodule is slightly larger versus 1.1 cm, previously. Continued follow-up recommended.
== END | disposition home or self-care (01) ==
LOC: RADUSWWP 13:38
PROVIDERS: ATTEND Family Medicine
DX: E04.1 Nontoxic single thyroid nodule (principal)
CPT/HCPCS: 76536

== ENCOUNTER 2021-06-29 15:37 | Inpatient (IN) | payer MEDICARE ==
--- NOTE | 2021-06-29 16:46 | ED ---
General Adult HPI - General Source: RN notes reviewed <Michael Moctezuma - Last Filed: 06/29/21 16:44> - General Source: patient <Aaron Valero - Last Filed: 06/29/21 22:04> - General Stated complaint: lt hip pain, unable to walk Time Seen by Provider: 06/29/21 20:20 - History of Present Illness Initial comments: Patient seen for advanced triage purposes: 66-year-old female with a past medical history of hypertension, rheumatoid arthritis presents for left hip pain. Patient has had left hip pain for the past few days. However last night worsen significantly. Patient states she is no longer able to put much weight on the left hip. She does not recall any injuries but does have a history of rheumatoid arthritis. No fevers. No bladder or bowel changes. Patient has no other complaints at this time including shortness of breath, chest pain, abdominal pain, nausea or vomiting, headache, or visual changes. (Michael Moctezuma) - Related Data Home Medications Medication Instructions Recorded Confirmed Multivitamins, Thera [Multivitamin 1 tab PO DAILY 09/29/18 01/24/21 (formulary)] PARoxetine HCL [Paxil] 40 mg PO DAILY 09/29/18 01/10/21 metHOTREXate sodium [Methotrexate] 25 mg PO MO 09/29/18 01/24/21 Cholecalciferol [Vitamin D3 (25 2,000 unit PO DAILY 08/31/19 01/10/21 Mcg = 1000 Iu)] Folic Acid 0.8 mg PO DAILY 08/31/19 01/10/21 Pravastatin Sodium [Pravachol] 20 mg PO HS 08/31/19 01/24/21 Levothyroxine Sodium [Synthroid] 125 mcg PO DAILY 12/10/19 01/10/21 Losartan [Cozaar] 50 mg PO DAILY 12/10/19 01/10/21 hydroCHLOROthiazide [Hydrodiuril] 12.5 mg PO DAILY 12/10/19 01/10/21 Allergies Allergy/AdvReac Type Severity Reaction Status Date / Time No Known Allergies Allergy Verified 06/29/21 16:47 Review of Systems ROS Other: All systems not noted in ROS Statement are negative. <Michael Moctezuma - Last Filed: 06/29/21 16:44> ROS Other: All systems not noted in ROS Statement are negative. <Aaron Valero - Last Filed: 06/29/21 22:04> ROS Statement: Those systems with pertinent positive or pertinent negative responses have been documented in the HPI. Past Medical History Past Medical History: Hypertension, Rheumatoid Arthritis (RA), Thyroid Disorder History of Any Multi-Drug Resistant Organisms: None Reported Past Surgical History: Back Surgery Additional Past Surgical History / Comment(s): COLONOSCOPY. LUMBAR FUSION X2, shoulder fracture, Past Anesthesia/Blood Transfusion Reactions: No Reported Reaction Past Psychological History: No Psychological Hx Reported Smoking Status: Former smoker Past Alcohol Use History: Occasional Additional Past Alcohol Use History / Comment(s): SMOKED 15 YEARS, 1 1/2 PPD, QUIT 1998. Past Drug Use History: Marijuana - Past Family History Brother(s) Family Medical History: Cancer Additional Family Medical History / Comment(s): COLON CA mother Family Medical History: Cancer Additional Family Medical History / Comment(s): thyroid <Michael Moctezuma - Last Filed: 06/29/21 16:44> General Exam General appearance: alert, in no apparent distress Head exam: Present: atraumatic, normocephalic, normal inspection Eye exam: Present: normal appearance, PERRL, EOMI. Absent: scleral icterus, conjunctival injection, periorbital swelling ENT exam: Present: normal exam, mucous membranes moist Neck exam: Present: normal inspection. Absent: tenderness, meningismus, lymphadenopathy Respiratory exam: Present: normal lung sounds bilaterally. Absent: respiratory distress, wheezes, rales, rhonchi, stridor Cardiovascular Exam: Present: regular rate, normal rhythm, normal heart sounds. Absent: systolic murmur, diastolic murmur, rubs, gallop, clicks GI/Abdominal exam: Present: soft, normal bowel sounds. Absent: distended, tenderness, guarding, rebound, rigid Rectal exam: Present: deferred External exam: Present: normal external exam, other (Is palpation of the left no evidence of any bruising) Extremities exam: Present: normal inspection, full ROM, normal capillary refill. Absent: tenderness, pedal edema, joint swelling, calf tenderness Back exam: Present: normal inspection Neurological exam: Present: alert, oriented X3, CN II-XII intact Psychiatric exam: Present: normal affect, normal mood Skin exam: Present: warm, dry, intact, normal color. Absent: rash <Aaron Valero - Last Filed: 06/29/21 22:04> - General Exam Comments Initial Comments: This is a well-developed well-nourished awake alert oriented 3 female (Khloe Valero) Course Vital Signs 06/29/21 16:43 Temperature 98.1 F Pulse Rate 81 Respiratory 18 Rate Blood Pressure 140/81 O2 Sat by Pulse 96 Oximetry Medical Decision Making - Radiology Data Radiology results: report reviewed (Imaging reviewed evidence of a fractured left iliac artery age. I did compare this with a 10/05/19 one CAT scan which showed no evidence of fracture at that time), image reviewed <Aaron Valero - Last Filed: 06/29/21 22:04> - Medical Decision Making I did discuss findings with patient and her also with Dr. Evans patient will be admitted for inpatient evaluation and treatment and orthopedic consultation. I did ask patient multiple times no recent falls no recent trauma pain did start 3 days ago. (Aaron Valero) Disposition <Michael Moctezuma - Last Filed: 06/29/21 16:44> <Aaron Valero - Last Filed: 06/29/21 22:04> Clinical Impression: Pelvic fracture, Intractable pain, Failure to thrive Disposition: ADMITTED IP TO THIS HOSP Condition: Fair Referrals: Evgeny Erickson DO [Primary Care Provider] - 1-2 days
--- NOTE | 2021-06-29 17:43 | XR ---
EXAMINATION TYPE: XR Hip LT and AP Pelvis DATE OF EXAM: 06/29/2021 COMPARISON: NONE HISTORY: Hip pain TECHNIQUE: 3 views FINDINGS: There is a large chip fracture of the lateral aspect of the left ileum that measures 8.5 x 4.3 cm. There is no significant displacement. There is comminution. The remainder of the pelvic ring is intact. Sacroiliac joints are intact. There is multilevel fusion surgery in the lower lumbar spine . Proximal left femur is intact. Hip joint spaces are fairly normal. IMPRESSION: Large chip fracture of the left iliac bone. Fracture does not appear acute.
[2021-06-29] MEDS ORDERED: HYDROmorphone 1 MG/ML 1 ML SYRINGE IVP STA (21:51)
[2021-06-29 22:01] LABS: Basophils % (A) 0 %; Eosinophils # (A) 0.2 k/uL (0-0.7); Eosinophils % (A) 1 %; HCT 38.2 % (34.0-46.0); Lymphocytes # (A) 0.9 k/uL (1.0-4.8); Lymphocytes % (A) 6 %; MCH 30.4 pg (25.0-35.0); MCHC 34.1 g/dL (31.0-37.0); Monocytes # (A) 0.9 k/uL (0-1.0); Monocytes % (A) 6 %; Neutrophils # (A) 13.4 k/uL (1.3-7.7); Neutrophils % (A) 86 %; Platelet Count 306 k/uL (150-450); RBC 4.29 m/uL (3.80-5.40); WBC 15.7 k/uL (3.8-10.6)
[2021-06-29] MEDS ORDERED: NALOXONE 0.4 MG/ML 1 ML VIAL IV PRN (22:04)
[2021-06-29] MEDS ORDERED: ONDANSETRON 4 MG/2 ML VIAL IVP PRN (22:04)
[2021-06-29 22:06] LABS: MCV 89.1 fL (80.0-100.0)
[2021-06-29 22:18] LABS: ALT 59 U/L (4-34); AST 47 U/L (14-36); African American GFR (CKD) >90 (>60 ml/min/1.73 sqM); Albumin 4.4 g/dL (3.5-5.0); Alkaline Phosphatase 84 U/L (38-126); Anion Gap 7 mmol/L; Blood Urea Nitrogen 20 mg/dL (7-17); Calcium 9.8 mg/dL (8.4-10.2); Carbon Dioxide 28 mmol/L (22-30); Chloride 103 mmol/L (98-107); Creatine Kinase 329 U/L (30-135); Glucose 121 mg/dL (74-99); Magnesium 2.1 mg/dL (1.6-2.3); Non-African American GFR(CKD) >90 (>60 ml/min/1.73 sqM); Potassium 3.9 mmol/L (3.5-5.1); Sodium 138 mmol/L (137-145); Total Bilirubin 0.7 mg/dL (0.2-1.3); Total Protein 7.3 g/dL (6.3-8.2)
[2021-06-29] MEDS: SODIUM CHLORIDE 0.9% 1,000 ML IV SCH (22:50)
--- NOTE | 2021-06-29 22:55 | CT ---
EXAMINATION TYPE: CT pelvis wo con DATE OF EXAM: 06/29/2021 COMPARISON: None HISTORY: left hip pain, no known injury CT DLP: 535 mGycm Automated exposure control for dose reduction was used. Images obtained from the iliac crests to the proximal femur with no contrast. There is vertical fracture through the left iliac bone. There is comminution. Fragment separation up to 1 cm. The acetabulum is intact. The sacroiliac joints are anatomic. Sacrum is intact. Proximal fem urs are intact. There is no evidence of a fracture. There is some soft tissue calcification at the le ft ischial tubercle consistent with old injury. There is minimal fat stranding in the left paracolic gutter. IMPRESSION: Vertically oriented fracture through the left iliac bone with displacement. Fracture appears acute.
[2021-06-30] MEDS: HYDROmorphone 1 MG/ML 1 ML SYRINGE IVP PRN ×6 (00:58→20:12)
[2021-06-30 01:20] LABS: Appearance,Urine Cloudy (Clear); Bacteria,Urine Rare /hpf; Bilirubin,Urine Negative (Negative); Blood,Urine Trace (Negative); Color,Urine Yellow; Glucose,Urine (UA) Negative (Negative); Hyaline Casts,Urine 1 /lpf (0-2); Ketones,Urine Trace (Negative); Leukocyte Esterase,Urine Negative (Negative); Mucus,Urine Occasional /hpf; Nitrite,Urine Negative (Negative); PH, Urine 6.5 (5.0-8.0); Protein,Urine Trace (Negative); RBC,Urine 2 /hpf (0-5); Specific Gravity,Urine 1.021 (1.001-1.035); Squamous Epithelial Cell,Urine 1 /hpf (0-4); Urobilinogen,Urine <2.0 mg/dL (<2.0); WBC,Urine 2 /hpf (0-5)
[2021-06-30] MEDS: LEVOTHYROXINE 125 MCG TAB PO SCH (06:52)
[2021-06-30] MEDS ORDERED: CHOLECALCIFEROL 25 MCG (1000 IU) TABLET PO SCH (09:00)
[2021-06-30] MEDS ORDERED: hydroCHLOROthiazide 25 MG TAB PO SCH (09:00)
[2021-06-30] MEDS: PARoxetine 20 MG TAB PO SCH (09:01)
[2021-06-30] MEDS: LOSARTAN 50 MG TAB PO SCH (09:01)
[2021-06-30] MEDS: FOLIC ACID 1 MG TAB PO SCH (09:01)
[2021-06-30] MEDS: hydroCHLOROthiazide 12.5 MG CAP PO SCH (09:01)
[2021-06-30] MEDS: MULTIVITAMINS, THERA 1 EACH TAB PO SCH (09:01)
--- NOTE | 2021-06-30 11:52 | P.HPIM ---
History of Present Illness This is a pleasant 66 years old female with past medical history of GERD/Reflux, Hyperlipidemia, Hypertension, chronic back pain status post fusion surgery 2, Parkinson disease, Osteoarthritis, Rheumatoid Arthritis, hypothyroidism, falls. She is a patient of Dr. Erickson. So she follows up with Dr. Aguirre Presents with gradually progressive left hip pain for 5 days duration without a reported history of fall. Pain in the left hip area, nonradiating, nonspecific felt like severe 10/10 on presentation. Associated with difficulty walking. No respiratory symptoms, she denies chest pain or dyspnea or coughing. No urinary symptoms, she denies dysuria or urgency. No diarrhea, no rash. No fever. No vomiting. She denies smoking, alcohol or illicit drugs Hemodynamically stable. Labs showing mild leukocytosis of 15.7 K. Rest of CBC, BMP is unremarkable. TSH is normal 1.7. Liver enzymes slightly elevated AST 47, ALT 59, bilirubin is not elevated at 0.7 Coronavirus nondetected Pelvis and hip x-ray: Large chip fracture of the left iliac bone. Fracture does not appear acute Pelvic CT showing vertically oriented fracture through the left iliac bone with displacement. Fracture appears acute Urine analysis is not suspicious of infection. Review of Systems CONSTITUTIONAL: No fever, no malaise, no fatigue. HEENT: No recent visual problems or hearing problems. Denied any sore throat. CARDIOVASCULAR: No orthopnea, PND, no palpitations, no syncope. PULMONARY: No shortness of breath, no cough, no hemoptysis. GASTROINTESTINAL: No diarrhea, no nausea, no vomiting, no abdominal pain. Normoactive bowel sounds. NEUROLOGICAL: No headaches, no weakness, no numbness. HEMATOLOGICAL: Denies any bleeding or petechiae. GENITOURINARY: Denies any burning micturition, frequency, or urgency. MUSCULOSKELETAL/RHEUMATOLOGICAL: Denies any joint pain, swelling, or any muscle pain. ENDOCRINE: Denies any polyuria or polydipsia. Past Medical History Past Medical History: GERD/Reflux, Hyperlipidemia, Hypertension, Neurologic Disorder, Osteoarthritis (OA), Pneumonia, Rheumatoid Arthritis (RA), Thyroid Disorder Additional Past Medical History / Comment(s): RA/chronic pain, Parkinson's disease, FALLS, hypothyroid, R shoulder fracture/no surgery, benign colon polyp, diverticular disease. History of Any Multi-Drug Resistant Organisms: None Reported Past Surgical History: Adenoidectomy, Back Surgery, Breast Surgery, Orthopedic Surgery, Tonsillectomy, Tubal Ligation Additional Past Surgical History / Comment(s): Back fusions x2, total L knee arthroplasty, carpal tunnel release R side, cyst removed from L breast/benign. colonoscopy. Past Anesthesia/Blood Transfusion Reactions: No Reported Reaction Smoking Status: Former smoker - Past Family History Brother(s) Family Medical History: Cancer Additional Family Medical History / Comment(s): COLON CA Father Family Medical History: Cancer, Hyperlipidemia, Hypertension Additional Family Medical History / Comment(s): Father had thyroid cancer. He is . mother Family Medical History: Hyperlipidemia, Hypertension Additional Family Medical History / Comment(s): Mother is . Medications and Allergies Home Medications Medication Instructions Recorded Confirmed Type Multivitamins, Thera [Multivitamin 1 tab PO DAILY 09/29/18 06/30/21 History (formulary)] PARoxetine HCL [Paxil] 40 mg PO DAILY 09/29/18 06/30/21 History metHOTREXate sodium [Methotrexate] 25 mg PO MO 09/29/18 06/30/21 History Pravastatin Sodium [Pravachol] 20 mg PO HS 08/31/19 06/30/21 History Levothyroxine Sodium [Synthroid] 125 mcg PO DAILY 12/10/19 06/30/21 History hydroCHLOROthiazide [Hydrodiuril] 25 mg PO DAILY 12/10/19 06/30/21 History Alendronate Sodium 70 mg PO Q7D 06/30/21 06/30/21 History Carbidopa-Levodopa ER 50-200Mg 1 tab PO BID 06/30/21 06/30/21 History [Sinemet CR 50-200 mg] Cholecalciferol [Vitamin D3 (25 50 mcg PO DAILY 06/30/21 06/30/21 History Mcg = 1000 Iu)] Folic Acid 1 mg PO DAILY 06/30/21 06/30/21 History Losartan Potassium [Cozaar] 100 mg PO DAILY 06/30/21 06/30/21 History Allergies Allergy/AdvReac Type Severity Reaction Status Date / Time No Known Allergies Allergy Verified 06/30/21 09:21 Physical Exam Vitals: Vital Signs Temp Pulse Pulse Resp BP BP Pulse Ox 06/30/21 09:13 98.1 F 68 16 142/66 90 L 06/30/21 07:05 81 20 156/84 96 06/30/21 04:00 72 20 162/69 96 06/30/21 00:57 79 20 162/72 95 06/29/21 16:43 98.1 F 81 18 140/81 96 Intake and Output 06/29/21 06/30/21 06/30/21 22:59 06:59 14:59 Other: Voiding Method Bedpan Weight 91.626 kg 91.626 kg GENERAL: The patient is alert and oriented x3, not in any acute distress. Well developed, well nourished. HEENT: Pupils are round and equally reacting to light. EOMI. No scleral icterus. No conjunctival pallor. Normocephalic, atraumatic. No pharyngeal erythema. No thyromegaly. CARDIOVASCULAR: S1 and S2 present. No murmurs, rubs, or gallops. PULMONARY: Chest is clear to auscultation, no wheezing or crackles. ABDOMEN: Soft, nontender, nondistended, normoactive bowel sounds. No palpable organomegaly. -MUSCULOSKELETAL: No joint swelling or deformity. Left hip tenderness EXTREMITIES: No cyanosis, clubbing, or pedal edema. NEUROLOGICAL: Gross neurological examination did not reveal any focal deficits. SKIN: No rashes. No petechiae Results CBC & Chem 7: 06/29/21 21:51 06/29/21 21:51 Labs: Abnormal Lab Results - Last 24 Hours (Table) 06/29/21 06/29/21 06/30/21 Range/Units 21:51 21:51 00:54 WBC 15.7 H (3.8-10.6) k/uL Neutrophils # 13.4 H (1.3-7.7) k/uL Lymphocytes # 0.9 L (1.0-4.8) k/uL BUN 20 H (7-17) mg/dL Creatinine 0.48 L (0.52-1.04) mg/dL Glucose 121 H (74-99) mg/dL AST 47 H (14-36) U/L ALT 59 H (4-34) U/L Creatine Kinase 329 H (30-135) U/L Urine Appearance Cloudy H (Clear) Urine Protein Trace H (Negative) Urine Ketones Trace H (Negative) Urine Blood Trace H (Negative) Urine Bacteria Rare H (None) /hpf Urine Mucus Occasional H (None) /hpf Thrombosis Risk Factor Assmnt - Choose All That Apply Any of the Below Risk Factors Present?: Yes Each Factor Represents 1 point: Medical pt on bed rest, Obesity (BMI >25) Other Risk Factors: Yes Each Risk Factor Represents 2 Points: Age 61-74 years Other congenital or acquired thrombophilia - If yes, enter type in comment: No Each Risk Factor Represents 5 Points: Hip, pelvis, or leg fracture (< 1 month) Thrombosis Risk Factor Assessment Total Risk Factor Score: 9 Thrombosis Risk Factor Assessment Level: High Risk Assessment and Plan Assessment: Acute left iliac bone fracture with left hip pain History of osteopenia/osteoporosis on a treatment (alendronate) at home Leukocytosis, mostly reactive Hypertension Hyperlipidemia chronic back pain status post fusion surgery 2 Parkinson disease History of osteoarthritis History of rheumatoid arthritis Hypothyroidism History of recurrent falls History of GERD Obesity with BMI of 32.6. Plan: This is a pleasant 66 years old female who presents with left hip fracture Pain management Gentle hydration Continue with vitamin D, at calcium, continue with alendronate Orthopedic team consult monitor white cell counts Labs and medication were reviewed.. Continue same treatment. Continue with symptomatic treatment. Resume home medication. Monitor lytes and vitals. DVT and GI prophylaxis. Further recommendations depends on the clinical course of the patient DVT prophylaxis: Subcutaneous heparin GI Prophylaxis: Pepcid PT/OT: Pending, Once cleared by orthopedic team Prognosis is guarded
--- NOTE | 2021-06-30 12:24 | XR ---
EXAMINATION TYPE: XR chest 1V DATE OF EXAM: 06/30/2021 COMPARISON: NONE HISTORY: Leukocytosis TECHNIQUE: Single frontal view of the chest is obtained. FINDINGS: Heart size prominent there is bibasilar subsegmental consolidation. No pleural effusion or pneumothorax. Arthropathy of the shoulders with previous surgery or trauma involving the right humer us. IMPRESSION: Bibasilar atelectasis versus early infiltrate correlate clinically.
[2021-06-30] MEDS: SODIUM CHLORIDE 0.9% 1,000 ML IV SCH ×2 (12:38→22:17)
--- NOTE | 2021-06-30 15:14 | P.CNOR ---
<Day Peoples - Last Filed: 06/30/21 15:15> History of Present Illness - [facility] Consult date: 06/30/21 Consult reason: fracture History of present illness: The patient is a pleasant 66-year-old female with a past medical history including hyperlipidemia, hypertension, Parkinson's disease, rheumatoid arthritis, and back fusion 2, who presented to the ER yesterday with left hip pain. She states she hasn't fallen in a one month and no injury precipitated the pain. The hip pain started about 1 week ago and has progressive worsened. She is unable to put weight into the left leg without severe pain. She does see Dr. Aguirre for her RA and osteopenia. She take Fosamax for osteopenia and previous proximal humerus fracture last year. X-rays and CT were performed in the ER and she was found to have an iliac fracture. The patient was admitted for pain control and further evaluation by orthopedics of her iliac fracture. Review of Systems Constitutional: Denies chills, Denies fatigue, Denies fever Respiratory: Denies cough Gastrointestinal: Denies diarrhea, Denies nausea, Denies vomiting Musculoskeletal: left: hip pain, hip stiffness Past Medical History Past Medical History: GERD/Reflux, Hyperlipidemia, Hypertension, Neurologic Disorder, Osteoarthritis (OA), Pneumonia, Rheumatoid Arthritis (RA), Thyroid Disorder Additional Past Medical History / Comment(s): RA/chronic pain, Parkinson's disease, FALLS, hypothyroid, R shoulder fracture/no surgery, benign colon polyp, diverticular disease. History of Any Multi-Drug Resistant Organisms: None Reported Past Surgical History: Adenoidectomy, Back Surgery, Breast Surgery, Orthopedic Surgery, Tonsillectomy, Tubal Ligation Additional Past Surgical History / Comment(s): Back fusions x2, total L knee arthroplasty, carpal tunnel release R side, cyst removed from L breast/benign. colonoscopy. Past Anesthesia/Blood Transfusion Reactions: No Reported Reaction Smoking Status: Former smoker - Past Family History Brother(s) Family Medical History: Cancer Additional Family Medical History / Comment(s): COLON CA Father Family Medical History: Cancer, Hyperlipidemia, Hypertension Additional Family Medical History / Comment(s): Father had thyroid cancer. He is . mother Family Medical History: Hyperlipidemia, Hypertension Additional Family Medical History / Comment(s): Mother is . Medications and Allergies Home Medications Medication Instructions Recorded Confirmed Type Multivitamins, Thera [Multivitamin 1 tab PO DAILY 09/29/18 06/30/21 History (formulary)] PARoxetine HCL [Paxil] 40 mg PO DAILY 09/29/18 06/30/21 History metHOTREXate sodium [Methotrexate] 25 mg PO MO 09/29/18 06/30/21 History Pravastatin Sodium [Pravachol] 20 mg PO HS 08/31/19 06/30/21 History Levothyroxine Sodium [Synthroid] 125 mcg PO DAILY 12/10/19 06/30/21 History hydroCHLOROthiazide [Hydrodiuril] 25 mg PO DAILY 12/10/19 06/30/21 History Alendronate Sodium 70 mg PO Q7D 06/30/21 06/30/21 History Carbidopa-Levodopa ER 50-200Mg 1 tab PO BID 06/30/21 06/30/21 History [Sinemet CR 50-200 mg] Cholecalciferol [Vitamin D3 (25 50 mcg PO DAILY 06/30/21 06/30/21 History Mcg = 1000 Iu)] Folic Acid 1 mg PO DAILY 06/30/21 06/30/21 History Losartan Potassium [Cozaar] 100 mg PO DAILY 06/30/21 06/30/21 History Allergies Allergy/AdvReac Type Severity Reaction Status Date / Time No Known Allergies Allergy Verified 06/30/21 09:21 Physical Examination The patient is a 66 year old female that is no acute distress. She is alert and oriented x3. The patient's head is normocephalic and atraumatic. Exam of the cervical spine reveals no pain upon palpation or range of motion. Exam of the bilateral upper extremities reveal no obvious deformities or pain upon range of motion. Exam of the right lower extremity reveals no pain upon palpation. Exam of the lower lower extremity reveals no obvious deformity. Scar from left knee arthroplasty is healed well. Some pain upon palpation to the lateral superior hip. There is pain upon logrolling and any range of motion of the leg. Moderate pain on AP compression of the pelvis on the left side. Minimal pain to the SI joint on the left. No pain on the right. Bilateral calves are soft and nonte nder. Patient has good foot and ankle motion bilaterally. Neurological and circulatory status is intact. Results - Labs Labs: Abnormal Lab Results - Last 24 Hours (Table) 1106/29/21 06/30/21 Range/Units 21:51 21:51 00:54 WBC 15.7 H (3.8-10.6) k/uL Neutrophils # 13.4 H (1.3-7.7) k/uL Lymphocytes # 0.9 L (1.0-4.8) k/uL BUN 20 H (7-17) mg/dL Creatinine 0.48 L (0.52-1.04) mg/dL Glucose 121 H (74-99) mg/dL AST 47 H (14-36) U/L ALT 59 H (4-34) U/L Creatine Kinase 329 H (30-135) U/L Urine Appearance Cloudy H (Clear) Urine Protein Trace H (Negative) Urine Ketones Trace H (Negative) Urine Blood Trace H (Negative) Urine Bacteria Rare H (None) /hpf Urine Mucus Occasional H (None) /hpf H & H 06/29/21 Range/Units 21:51 Hgb 13.0 (11.4-16.0) gm/dL Hct 38.2 (34.0-46.0) % Result Diagrams: 06/29/21 21:51 06/29/21 21:51 - Diagnostic results Hip CT: image reviewed (CT of the left hip reveals a minimally displaced iliac fracture. It does not communicate into the hip joint. Unable to rule out pathologic fracture. ) Assessment and Plan (1) Parkinson disease Current Visit: Yes Status: Acute Code(s): G20 - PARKINSON'S DISEASE SNOMED Code(s): 89910584 (2) Hypertension Current Visit: Yes Status: Acute Code(s): I10 - ESSENTIAL (PRIMARY) HYPERTENSION SNOMED Code(s): 88513093 (3) Hyperlipidemia Current Visit: Yes Status: Acute Code(s): E78.5 - HYPERLIPIDEMIA, UNSPECIFIED SNOMED Code(s): 88196627 (4) Rheumatoid arthritis Current Visit: Yes Status: Acute Code(s): M06.9 - RHEUMATOID ARTHRITIS, UNSPECIFIED SNOMED Code(s): 29326710 (5) Intractable pain Current Visit: Yes Status: Acute Code(s): R52 - PAIN, UNSPECIFIED SNOMED Code(s): 82212736 (6) Pelvic fracture Current Visit: Yes Status: Acute Code(s): S32.9XXA - FRACTURE OF UNSP PARTS OF LUMBOSACRAL SPINE AND PELVIS, INIT SNOMED Code(s): 53495887 (7) Osteopenia Current Visit: Yes Status: Acute Code(s): M85.80 - OTH DISRD OF BONE DENSITY AND STRUCTURE, UNSPECIFIED SITE SNOMED Code(s): 854555194 Plan: The clinical, x-ray, and CT findings were discussed with the patient and her . The case was discussed at length with Dr. Abdalla. We will order an MRI of the pelvis with and without contrast to rule out pathologic cause for the fracture. There was no recent trauma to explain the fracture at this time. She may get out of bed as tolerated with protective partial weightbearing to the left leg with a walker. We will add [place] and Ultram for pain as needed, start to wean Dilaudid use. We will continue to follow the patient closely and make further recommendations after the MRI. <Val Abdalla - Last Filed: 06/30/21 16:11> Physical Examination Osteopathic Statement: *. No significant issues noted on an osteopathic structural exam other than those noted in the History and Physical/Consult. Results - Labs Labs: Abnormal Lab Results - Last 24 Hours (Table) 06/29/21 06/29/21 06/30/21 Range/Units 21:51 21:51 00:54 WBC 15.7 H (3.8-10.6) k/uL Neutrophils # 13.4 H (1.3-7.7) k/uL Lymphocytes # 0.9 L (1.0-4.8) k/uL BUN 20 H (7-17) mg/dL Creatinine 0.48 L (0.52-1.04) mg/dL Glucose 121 H (74-99) mg/dL AST 47 H (14-36) U/L ALT 59 H (4-34) U/L Creatine Kinase 329 H (30-135) U/L Urine Appearance Cloudy H (Clear) Urine Protein Trace H (Negative) Urine Ketones Trace H (Negative) Urine Blood Trace H (Negative) Urine Bacteria Rare H (None) /hpf Urine Mucus Occasional H (None) /hpf H & H 06/29/21 Range/Units 21:51 Hgb 13.0 (11.4-16.0) gm/dL Hct 38.2 (34.0-46.0) % Result Diagrams: 06/29/21 21:51 06/29/21 21:51 Assessment and Plan Plan: Agree with above. Patient seen and examined. It's odd that she would have this fracture without any trauma. The pain was also progressively worse starting 3 days ago. The fracture pattern is stable but we'll get an MRI to make sure there is no underlying pathology.
[2021-06-30] MEDS: CALCIUM CARB-VIT D 500 MG-5 MCG TAB PO SCH (16:51)
[2021-06-30] MEDS: HEPARIN SODIUM,PORCINE/PF 5,000 UNIT/0.5 ML SYRINGE SQ SCH (20:11)
[2021-06-30] MEDS: FAMOTIDINE 20 MG/2 ML VIAL IV SCH (20:11)
[2021-06-30] MEDS: CARBIDOPA-LEVODOPA ER 50-200MG 1 EACH TABLET.ER PO SCH (20:11)
[2021-06-30] MEDS: PRAVASTATIN SODIUM 20 MG TAB PO SCH (21:31)
--- NOTE | 2021-06-30 21:41 | MR ---
EXAMINATION TYPE: MR pelvis wo/w con DATE OF EXAM: 06/30/2021 COMPARISON: CT pelvis from yesterday HISTORY: Left iliac fracture. Rule out pathological fracture. CONTRAST: Standard multiplanar, multisequence MRI departmental protocol images were obtained without contrast a nd with 9 mL intravenous Gadavist gadolinium contrast. FINDINGS: Comminuted slightly displaced fracture through the left iliac bone and wing redemonstrated with surrounding adjacent and intramuscular edema. Being a flat bone this is suboptimally evaluated o n MRI versus CT. Some nonspecific heterogeneous surrounding enhancement identified. Bone marrow signa l intensity fairly well maintained. No suspicious adjacent soft tissue mass clearly seen. Remainder o f pelvis shows no suspicious osseous lesions. There is artifact from surgical change in the lower lum bar spine extending to transitional vertebra redemonstrated. Hip joints are maintained. Pubic symphys is is intact. Sacroiliac joints are grossly preserved. No suspicious bowel dilatation. Urinary bladder grossly unremarkable. Uterus smaller in size consiste nt with postmenopausal age. Few tiny nabothian cysts in the cervix are present. No concerning pelvic fluid collection present. Anterior to the transitional type vertebra there is a nonenhancing well-def ined oval 3.2 x 3.0 x 3.4 cm mass of T1 hypointensity and T2 hyperintensity without postcontrast enha ncement favoring thin-walled cyst corresponding to CT axial image 28 favored benign in etiology. IMPRESSION: MRI is suboptimal in evaluating flat bones. Redemonstration of comminuted slightly displa shanta fracture through the left iliac bone and wing with surrounding and intramuscular subcutaneous rosalba ma and enhancement. No obvious soft tissue mass to suggest pathologic fracture. No additional suspici ous osseous lesions to suggest metastatic disease.
[2021-07-01] MEDS: HYDROmorphone 1 MG/ML 1 ML SYRINGE IVP PRN (02:23)
[2021-07-01] MEDS: FOLIC ACID 1 MG TAB PO SCH (07:27)
[2021-07-01] MEDS: HEPARIN SODIUM,PORCINE/PF 5,000 UNIT/0.5 ML SYRINGE SQ SCH ×2 (07:27→20:40)
[2021-07-01] MEDS: MULTIVITAMINS, THERA 1 EACH TAB PO SCH (07:27)
[2021-07-01] MEDS: CALCIUM CARB-VIT D 500 MG-5 MCG TAB PO SCH ×2 (07:27→16:58)
[2021-07-01] MEDS: LOSARTAN 50 MG TAB PO SCH (07:27)
[2021-07-01] MEDS: FAMOTIDINE 20 MG/2 ML VIAL IV SCH (07:27)
[2021-07-01] MEDS: CARBIDOPA-LEVODOPA ER 50-200MG 1 EACH TABLET.ER PO SCH ×2 (07:28→20:40)
[2021-07-01] MEDS: PARoxetine 20 MG TAB PO SCH (07:28)
[2021-07-01] MEDS: hydroCHLOROthiazide 12.5 MG CAP PO SCH (07:28)
[2021-07-01] MEDS: SODIUM CHLORIDE 0.9% 1,000 ML IV SCH (07:28)
[2021-07-01] MEDS: HYDROcodone/APAP 5-325MG 1 EACH TAB PO PRN ×4 (08:28→22:07)
[2021-07-01] MEDS ORDERED: NON FORMULARY DRUG (Alendronate Sodium [Alendronate Sodium] 70 MG Tablet) PO SCH (09:00)
--- NOTE | 2021-07-01 09:23 | P.PN ---
Subjective Progress Note Date: 07/01/21 Principal diagnosis: Left iliac fracture The patient is a pleasant 66-year-old female with a past medical history including hyperlipidemia, hypertension, Parkinson's disease, rheumatoid arthritis, and back fusion 2, who presented to the ER yesterday with left hip pain. She states she hasn't fallen in a one month and no injury precipitated the pain. The hip pain started about 1 week ago and has progressive worsened. She is unable to put weight into the left leg without severe pain. She does see Dr. Aguirre for her RA and osteopenia. She take Fosamax for osteopenia and previous proximal humerus fracture last year. X-rays and CT were performed in the ER and she was found to have an iliac fracture. The patient was admitted for pain control and further evaluation by orthopedics of her iliac fracture. 07/01/2021: The patient states that the Dilaudid made her hallucinate last night and they are avoiding Dilaudid today. She was given CareSpotter, which has worked for her in the past. No new complaints this morning. She hasn't been out of bed yet. MRI was done last night. Objective - Vital Signs Vital signs: Vital Signs Temp 99.1 F 07/01/21 07:25 Pulse 71 07/01/21 07:25 Resp 18 07/01/21 07:25 BP 191/81 07/01/21 07:25 Pulse Ox 96 07/01/21 07:25 Intake & Output 06/30/21 07/01/21 07/01/21 18:59 06:59 18:59 Intake Total 600 Balance 600 Weight 91.626 kg Intake: Oral 600 Other: Voiding Method Bedpan Bedpan # Voids 3 2 - Exam The patient is a 66 year old female that is no acute distress. She is alert and oriented x3. The patient's head is normocephalic and atraumatic. Exam of the cervical spine reveals no pain upon palpation or range of motion. Exam of the bilateral upper extremities reveal no obvious deformities or pain upon range of motion. Exam of the right lower extremity reveals no pain upon palpation. Exam of the lower lower extremity reveals no obvious deformity. Scar from left knee arthroplasty is healed well. Some pain upon palpation to the lateral superior hip. There is pain upon logrolling and any range of motion of the leg. Moderate pain on AP compression of the pelvis on the left side. Minimal pain to the SI joint on the left. No pain on the right. Bilateral calves are soft and nontender. Patient has good foot and ankle motion bilaterally. Neurological and circulatory status is intact. - Labs CBC & Chem 7: 06/29/21 21:51 06/29/21 21:51 Assessment and Plan (1) Parkinson disease Current Visit: Yes Status: Acute Code(s): G20 - PARKINSON'S DISEASE SNOMED Code(s): 24302868 (2) Hypertension Current Visit: Yes Status: Acute Code(s): I10 - ESSENTIAL (PRIMARY) HYPERTENSION SNOMED Code(s): 82431084 (3) Hyperlipidemia Current Visit: Yes Status: Acute Code(s): E78.5 - HYPERLIPIDEMIA, UNSPECIFIED SNOMED Code(s): 84403164 (4) Rheumatoid arthritis Current Visit: Yes Status: Acute Code(s): M06.9 - RHEUMATOID ARTHRITIS, UNSPECIFIED SNOMED Code(s): 34736213 (5) Intractable pain Current Visit: Yes Status: Acute Code(s): R52 - PAIN, UNSPECIFIED SNOMED Code(s): 96417725 (6) Pelvic fracture Current Visit: Yes Status: Acute Code(s): S32.9XXA - FRACTURE OF UNSP PARTS OF LUMBOSACRAL SPINE AND PELVIS, INIT SNOMED Code(s): 02131152 (7) Osteopenia Current Visit: Yes Status: Acute Code(s): M85.80 - OTH DISRD OF BONE DENSITY AND STRUCTURE, UNSPECIFIED SITE SNOMED Code(s): 520618070 Plan: The clinical and MRI findings were discussed with the patient. The case was discussed at length with Dr. Abdalla. The MRI ruled out tumor or pathological cause for fracture. She may get out of bed as tolerated with protective partial weightbearing due to pain on the left leg with a walker. PT is ordered to evaluate her. We will add [place] and Ultram for pain as needed, wean Dilaudid use. As long as the patient is ambulating safely and her pain is controlled, she may be discharged from an orthopedic standpoint. She will follow up with us in the office in about 2 weeks.
[2021-07-01 10:51] LABS: Basophils # (A) 0.1 k/uL (0-0.2); Basophils % (A) 1 %; Eosinophils # (A) 0.3 k/uL (0-0.7); Eosinophils % (A) 2 %; HCT 37.2 % (34.0-46.0); HGB 12.6 gm/dL (11.4-16.0); Lymphocytes % (A) 8 %; MCH 30.5 pg (25.0-35.0); MCHC 33.9 g/dL (31.0-37.0); Monocytes # (A) 0.7 k/uL (0-1.0); Monocytes % (A) 6 %; Neutrophils # (A) 10.8 k/uL (1.3-7.7); Neutrophils % (A) 83 %; Platelet Count 328 k/uL (150-450); RBC 4.14 m/uL (3.80-5.40); RDW 13.8 % (11.5-15.5)
[2021-07-01 11:00] LABS: African American GFR (CKD) >90 (>60 ml/min/1.73 sqM); Anion Gap 8 mmol/L; Blood Urea Nitrogen 20 mg/dL (7-17); Carbon Dioxide 28 mmol/L (22-30); Chloride 102 mmol/L (98-107); Glucose 121 mg/dL (74-99); Non-African American GFR(CKD) >90 (>60 ml/min/1.73 sqM); Sodium 138 mmol/L (137-145)
[2021-07-01] MEDS: traMADol 50 MG TAB PO PRN (11:29)
[2021-07-01] MEDS: PRAVASTATIN SODIUM 20 MG TAB PO SCH (20:40)
[2021-07-01] MEDS: FAMOTIDINE 20 MG TAB PO SCH (20:40)
[2021-07-02] MEDS: SODIUM CHLORIDE 0.9% 1,000 ML IV SCH (03:44)
[2021-07-02] MEDS: LEVOTHYROXINE 125 MCG TAB PO SCH (05:35)
[2021-07-02] MEDS: HEPARIN SODIUM,PORCINE/PF 5,000 UNIT/0.5 ML SYRINGE SQ SCH (08:37)
[2021-07-02] MEDS: HYDROcodone/APAP 5-325MG 1 EACH TAB PO PRN ×2 (08:38→12:33)
[2021-07-02] MEDS: CARBIDOPA-LEVODOPA ER 50-200MG 1 EACH TABLET.ER PO SCH (08:38)
[2021-07-02] MEDS: FAMOTIDINE 20 MG TAB PO SCH (08:38)
[2021-07-02] MEDS: CALCIUM CARB-VIT D 500 MG-5 MCG TAB PO SCH (08:38)
[2021-07-02] MEDS: hydroCHLOROthiazide 12.5 MG CAP PO SCH (08:39)
[2021-07-02] MEDS: LOSARTAN 50 MG TAB PO SCH (08:39)
[2021-07-02] MEDS: MULTIVITAMINS, THERA 1 EACH TAB PO SCH (08:40)
[2021-07-02] MEDS: PARoxetine 20 MG TAB PO SCH (08:40)
[2021-07-02] MEDS: FOLIC ACID 1 MG TAB PO SCH (08:40)
[2021-07-02 09:01] VITALS: BP 134/82; PULSE 82; RESP 17; TEMP 98.2
--- NOTE | 2021-07-02 09:56 | P.PN ---
Subjective Progress Note Date: 07/01/21 Principal diagnosis: Pelvic fracture This is a pleasant 66 years old female with past medical history of GERD/Reflux, Hyperlipidemia, Hypertension, chronic back pain status post fusion surgery 2, Parkinson disease, Osteoarthritis, Rheumatoid Arthritis, hypothyroidism, falls. She is a patient of Dr. Erickson. So she follows up with Dr. Aguirre Presents with gradually progressive left hip pain for 5 days duration without a reported history of fall. Pain in the left hip area, nonradiating, nonspecific felt like severe 10/10 on presentation. Associated with difficulty walking. No respiratory symptoms, she denies chest pain or dyspnea or coughing. No urinary symptoms, she denies dysuria or urgency. No diarrhea, no rash. No fever. No vomiting. She denies smoking, alcohol or illicit drugs Hemodynamically stable. Labs showing mild leukocytosis of 15.7 K. Rest of CBC, BMP is unremarkable. TSH is normal 1.7. Liver enzymes slightly elevated AST 47, ALT 59, bilirubin is not elevated at 0.7 Coronavirus nondetected Pelvis and hip x-ray: Large chip fracture of the left iliac bone. Fracture does not appear acute Pelvic CT showing vertically oriented fracture through the left iliac bone with displacement. Fracture appears acute Urine analysis is not suspicious of infection. 07/01/2021 Patient is lying in the bed awake alert and oriented 3. Still complains of left pelvic pain. Unable to bear weight on the left lower extremity due to pain in the left iliac crest. MRI of the pelvis showed suboptimal in evaluating platforms. Redemonstration of a limited slightly displaced fracture through the left ear for and being with surrounding and intramuscular subcutaneous edema and enhanced. No obvious soft tissue masses to suggest pathological fracture. No additional suspicious osseous lesions to suggest metastatic disease.[ Current medications reviewed. Objective - Vital Signs Vital signs: Vital Signs Temp 98.9 F 07/01/21 13:23 Pulse 68 07/01/21 13:23 Resp 18 07/01/21 13:30 BP 153/67 07/01/21 13:23 Pulse Ox 97 07/01/21 13:23 Intake & Output 06/30/21 07/01/21 07/01/21 18:59 06:59 18:59 Intake Total 600 480 Balance 600 480 Weight 91.626 kg Intake: Oral 600 480 Other: Voiding Method Bedpan Bedpan Bedside Commode Bedpan # Voids 3 2 2 - Exam GENERAL: The patient is alert and oriented x3, not in any acute distress. Well developed, well nourished. HEENT: Pupils are round and equally reacting to light. EOMI. No scleral icterus. No conjunctival pallor. Normocephalic, atraumatic. No pharyngeal erythema. No thyromegaly. CARDIOVASCULAR: S1 and S2 present. No murmurs, rubs, or gallops. PULMONARY: Chest is clear to auscultation, no wheezing or crackles. ABDOMEN: Soft, nontender, nondistended, normoactive bowel sounds. No palpable organomegaly. -MUSCULOSKELETAL: No joint swelling or deformity. Left hip tenderness EXTREMITIES: No cyanosis, clubbing, or pedal edema. Patient does have tenderness over the left side of the pelvis NEUROLOGICAL: Gross neurological examination did not reveal any focal deficits. SKIN: No rashes. No petechiae - Labs CBC & Chem 7: 07/01/21 10:17 07/01/21 10:17 Labs: Abnormal Lab Results - Last 24 Hours (Table) 07/01/21 07/01/21 Range/Units 10:17 10:17 WBC 13.0 H (3.8-10.6) k/uL Neutrophils # 10.8 H (1.3-7.7) k/uL BUN 20 H (7-17) mg/dL Glucose 121 H (74-99) mg/dL Assessment and Plan Assessment: Acute left iliac bone fracture with left hip pain History of osteopenia/osteoporosis on a treatment (alendronate) at home Leukocytosis, mostly reactive Hypertension Hyperlipidemia chronic back pain status post fusion surgery 2 Parkinson disease History of osteoarthritis History of rheumatoid arthritis Hypothyroidism History of recurrent falls History of GERD Obesity with BMI of 32.6. Plan: This is a pleasant 66 years old female who presents with left hip fracture Pain management Gentle hydration Continue with vitamin D, at calcium, continue with alendronate Orthopedic team consult monitor white cell counts Labs and medication were reviewed. Monitor lytes and vitals. DVT and GI prophylaxis. Further recommendations depends on the clinical course of the patient DVT prophylaxis: Subcutaneous heparin GI Prophylaxis: Pepcid PT/OT: Outpatient follow-up as per orthopedic team Prognosis is guarded
[2021-07-02] MEDS: traMADol 50 MG TAB PO PRN ×2 (10:13→14:14)
[2021-07-02] MEDS ORDERED: INFLUENZA VACC HIGH-DOSE (65+) 240 MCG/0.7 ML SYRINGE IM ONE (12:36)
== END 2021-07-02 15:10 | disposition home health service (06) | DRG 536 ==
LOC: EC 15:37 → 5NMEDONC 22:04 → 1SOBS 06-30 07:13
PROVIDERS: ADMIT Internal Medicine; ATTEND Internal Medicine
DX: S32.302A Unspecified fracture of left ilium, initial encounter for closed fracture (principal); R74.01 Elevation of levels of liver transaminase levels; M54.9 Dorsalgia, unspecified; Z98.1 Arthrodesis status; Z20.822 Contact with and (suspected) exposure to COVID-19; Z96.652 Presence of left artificial knee joint; E03.9 Hypothyroidism, unspecified; E66.9 Obesity, unspecified; E78.5 Hyperlipidemia, unspecified; G20 Parkinson's disease; G89.29 Other chronic pain; I10 Essential (primary) hypertension; M06.9 Rheumatoid arthritis, unspecified; Z68.32 Body mass index [BMI] 32.0-32.9, adult; Z87.891 Personal history of nicotine dependence; Z82.49 Family history of ischemic heart disease and other diseases of the circulatory system; Z80.8 Family history of malignant neoplasm of other organs or systems; Z80.0 Family history of malignant neoplasm of digestive organs; Z79.899 Other long term (current) drug therapy; Z79.890 Hormone replacement therapy; R29.6 Repeated falls
CPT/HCPCS: 36415; 71045; 72192; 72197; 73502; 80048; 80053; 81001; 82550; 83735; 84443; 85025; 87635; 90662; 96374; 99284

== ENCOUNTER → 2021-11-28 | Outpatient (CLI) | payer MEDICARE ==
--- NOTE | 2021-11-28 12:00 | XR ---
AP pelvis HISTORY: Fracture of the ileum Frontal view of the pelvis correlated to CT scan dated 06/29/2021, plain film 06/29/2021 The displace d fracture of the left ilium is again noted. Postop changes are again seen at the lumbosacral spine. No acute fracture or dislocation. There are calcifications present along the hamstring musculature ar e chronic. Inferior pubic ramus on the left shows a cortical regularity not seen on prior CT. Possible deformity of the inferior pubic ramus on the left is of questionable age. Osteoarthritic parveen nges present in the right hip and left hip IMPRESSION: Remote posttraumatic and postop changes. Questionable deformity of the inferior pubic bill us on the left, correlate, alternate imaging could be performed to assess for acuity as indicated.
== END | disposition home or self-care (01) ==
LOC: RADXRYALE 09:56
PROVIDERS: ATTEND Physician Assistant
DX: S32.39 Other fracture of ilium (principal); X58.XXXD Exposure to other specified factors, subsequent encounter
CPT/HCPCS: 72170

== ENCOUNTER → 2022-07-06 | Outpatient (CLI) | payer MEDICARE ==
--- NOTE | 2022-07-06 12:31 | US ---
EXAMINATION TYPE: US thyroid st tissue head/neck DATE OF EXAM: 07/06/2022 COMPARISON: NONE CLINICAL HISTORY: E04.2 NONTOXIC MULTINODULAR GOITER. GLAND SIZE: Right Lobe: 4.0 x 1.4 x 1.4 cm Overall Parenchyma: homogenous Left Lobe: 4.8 x 1.5 x 1.8 cm Overall Parenchyma: homogeneous Isthmus Thickness: 0.2 cm NODULES RIGHT: # of nodules measured on right: 2 1. 0.9 X 0.6 x 1.0 cm, mid, mixed, hypoechoic nodule, which is wider than tall, with smooth margin s, without echogenic foci. Prior size: 0.9 x 0.6 x 0.9 cm 2. 0.6 X 0.3 x 0.4 cm, upper , solid, hypoechoic nodule, which is wider than tall, with smooth mar gins, without echogenic foci. Prior size: 0.5 x 0.4 x 0.5 cm LEFT: # of nodules measured on left: 2 1. 1.4 X 0.9 x 1.1 cm, lower , solid, hypoechoic nodule, which is wider than tall, with smooth mar gins, without echogenic foci. Prior size: 1.4 x 1. x 1.4 cm 2. 1.4 X 0.8 x 1.3 cm, upper, solid, hypoechoic nodule, which is wider than tall, with smooth mar gins, without echogenic foci. Prior size: 1.2 x 0.7 x 1.3 cm ISTHMUS: # of nodules measured in the isthmus: 0 Bilateral neck scanned, no evidence of lymphadenopathy. Bilateral neck scanned, no evidence of lymphadenopathy. IMPRESSION: Nonspecific nodularity 2017 ACR TI-RADS LEVEL: *Highest TI-RADS level nodule reported
== END | disposition home or self-care (01) ==
LOC: RADUSWWP 11:00
PROVIDERS: ATTEND Family Medicine
DX: E04.2 Nontoxic multinodular goiter (principal)
CPT/HCPCS: 76536

== ENCOUNTER → 2022-07-23 | Outpatient (CLI) | payer MEDICARE ==
--- NOTE | 2022-07-24 09:18 | MM ---
Reason for Exam: Screening (asymptomatic). Last mammogram was performed 3 year(s) and 1 month(s) ago. Patient History: Menarche at age 12. First Full-Term at age 21. Postmenopausal. Hormonal Contraceptives for 6 months. 1989, Excisional Biopsy on the Left side. Risk Values: Mima 5 year model risk: 1.9%. NCI Lifetime model risk: 7.0%. Prior Study Comparison: 11/12/2015 Bilateral Screening Mammogram, [facility]. 05/18/2018 Bilateral Screening Mammogram, [facility]. 06/08/2019 Bilateral Screening Mammogram, [facility]. Tissue Density: There are scattered fibroglandular densities. Findings: Analyzed By CAD. A few benign-appearing round calcifications are redemonstrated scattered throughout bilateral breasts. There is no suspicious new group of microcalcifications or new suspicious mass in either breast. Overall Assessment: Benign, BI-RAD 2 Management: Screening Mammogram of both breasts in 1 year. A clinical breast exam by your physician is recommended on an annual basis and results should be correlated with mammographic findings. Electronically signed and approved by: Maico Rojo M.D.
== END | disposition home or self-care (01) ==
LOC: RADMAMWWP 15:56
PROVIDERS: ATTEND Family Medicine
DX: Z12.31 Encounter for screening mammogram for malignant neoplasm of breast (principal); Z78.0 Asymptomatic menopausal state
CPT/HCPCS: 77067

== ENCOUNTER → 2022-10-23 | Outpatient (CLI) | payer MEDICARE ==
--- NOTE | 2022-10-23 10:59 | XR ---
EXAM TYPE: LUMBAR SPINE X RAY SERIES COMPARISON: NONE HISTORY: Lower back pain TECHNIQUE: 4 views are submitted. FINDINGS: Alignment is anatomic. The pedicles are intact. The transverse processes are intact. There is diff use osteopenia with grade 1 anterolisthesis of L3 on L4 and L4 on L5. Severe degenerative disc diseas e at all levels. Vascular calcium is noted. Chronic appearing deformity superior endplate of L1. IMPRESSION: 1. Severe multilevel degenerative disc disease with postsurgical changes and grade 1 anterior listhes is of L3 on L4 and L4 on L5. Suspect multilevel foraminal encroachment.
--- NOTE | 2022-10-23 11:03 | XR ---
EXAMINATION TYPE: XR Hip Bilateral Complete DATE OF EXAM: 10/23/2022 COMPARISON: 11/28/2021 HISTORY: Pain TECHNIQUE: 2 views of each hip submitted FINDINGS: There is a marked deformity of the left iliac bone with displaced suspected fracture stable relative to prior exam. There is a mild to moderate concentric narrowing of the hip joints bilaterally. No ero sive changes. Vascular calcifications are seen. Surgical change involving the lower lumbar spine note d. SI joints are symmetric. A remote appearing deformity to the inferior pubic ramus on the left. Lik carlos also a subtle deformity involving the anterior, and the acetabulum on the left.. IMPRESSION: 1. Bilateral mild to moderate axial hip arthropathy. No erosive changes. 2. Remote fractures involving the left iliac bone and left sided pubic rami and anterior column left acetabulum.
--- NOTE | 2022-10-23 11:04 | XR ---
EXAMINATION TYPE: XR pelvis AP view DATE OF EXAM: 10/23/2022 COMPARISON: 11/28/2021 HISTORY: Pain Chronic deformity of the left iliac bone, left pubic ramus and probable anterior column left acetabul um. Moderate axial narrowing of the hip joint bilaterally. Diffuse osteopenia. SI joints symmetric. P ostsurgical change lower lumbar spine. Vascular calcifications noted.. IMPRESSION: 1. No acute fracture. Remote fractures left iliac bone and the left pubic rami 2. Moderate axial arthropathy of the hip joints. Consider femoral acetabular impingement.
== END | disposition home or self-care (01) ==
LOC: RADXRYALE 09:51
PROVIDERS: ATTEND Psychiatry & Neurology Neurology
DX: M43.16 Spondylolisthesis, lumbar region (principal); M51.36 Other intervertebral disc degeneration, lumbar region; M16.0 Bilateral primary osteoarthritis of hip; R26.89 Other abnormalities of gait and mobility; M41.9 Scoliosis, unspecified; R10.2 Pelvic and perineal pain
CPT/HCPCS: 72110; 72170; 73521

== ENCOUNTER → 2023-04-15 | Outpatient (CLI) | payer MEDICARE ==
--- NOTE | 2023-04-15 14:40 | XR ---
EXAMINATION TYPE: XR pelvis AP view DATE OF EXAM: 04/15/2023 COMPARISON: 10/24/2019 HISTORY: Postop, pelvic Findings: Stable chronic deformity in the left iliac wing displacement. Mild to moderate bilateral hip arthropa thy. Diffuse osteopenia. Vascular calcifications. Postsurgical changes lower lumbar spine stable.. N o acute fracture is seen. Visualized bowel gas pattern is nonspecific. Remote trauma left pubic bill i stable. IMPRESSION: 1. Findings suggest remote displaced fracture left iliac bone and remote fracture but pubic rami stab le. 2. Bilateral hip arthropathy stable. 3. Postsurgical change lower lumbar spine stable.
--- NOTE | 2023-04-15 14:43 | XR ---
EXAMINATION TYPE: XR Hip Complete LT DATE OF EXAM: 04/15/2023 COMPARISON: 10/23/2022 HISTORY: Pain TECHNIQUE: 2 views submitted FINDINGS: Remote displaced left iliac bone fracture stable. Chronic deformity left inferior pubic ramus stable. Soft tissue ossification/calcifications adjacent to the left inferior pubic ramus. Possibly related to heterotopic ossification or dystrophic calcifications. Vascular calcifications also noted and stab le. There is mild concentric narrowing of the hip joints. Diffuse osteopenia. IMPRESSION: 1. Stable remote fractures with mild arthropathy of the hip. 2. Diffuse osteopenia.
== END | disposition home or self-care (01) ==
LOC: RADXRYALE 14:13
PROVIDERS: ATTEND Physician Assistant
DX: M16.0 Bilateral primary osteoarthritis of hip (principal); M85.852 Other specified disorders of bone density and structure, left thigh; Z87.81 Personal history of (healed) traumatic fracture
CPT/HCPCS: 72170; 73502

== ENCOUNTER 2023-06-02 15:14 | Emergency (ER) | payer MEDICARE ==
--- NOTE | 2023-06-02 15:35 | ED ---
Extremity Problem HPI - General Source: patient, family, RN notes reviewed Mode of arrival: wheelchair Limitations: no limitations - History of Present Illness MD Complaint: extremity pain, extremity swelling Onset/Timin -: days(s) <Melanie Saavedra - Last Filed: 06/02/23 15:32> <Carmencita Travis - Last Filed: 06/02/23 19:00> - General Chief complaint: Extremity Problem,Nontraumatic Stated complaint: left leg swollen Time Seen by Provider: 06/02/23 15:32 - History of Present Illness Initial comments: This is a 68 year old female who presents to the emergency department for left leg pain and swelling. States that this started 3 weeks ago. Denies any injuries. It did appear bruised last week. States that the leg feels warm and firm as well. Denies any chest pain or shortness of breath. Today she has barely been able to walk on the leg. (Melanie Saavedra) 68-year-old female presents to the emergency department chief complaint of left leg pain and swelling. She states that this is been going on for around one week. She states that it was bruised but this has improved. She does note that she has been ambulating well but today notes that she has had some difficulty ambulating due to pain. He does admit to taking Aleve which helped slightly. She does report a history of left knee replacement. Denies any redness in the area, denies fever, chills. Denies chest pain, shortness of breath. (Carmencita Travis) - Related Data Home Medications Medication Instructions Recorded Confirmed Multivitamins, Thera [Multivitamin 1 tab PO DAILY 09/29/18 06/30/21 (formulary)] PARoxetine HCL [Paxil] 40 mg PO DAILY 09/29/18 06/30/21 metHOTREXate sodium 25 mg PO MO 09/29/18 06/30/21 Pravastatin Sodium [Pravachol] 20 mg PO HS 08/31/19 06/30/21 Levothyroxine Sodium [Synthroid] 125 mcg PO DAILY 12/10/19 06/30/21 hydroCHLOROthiazide [Hydrodiuril] 25 mg PO DAILY 12/10/19 06/30/21 Alendronate Sodium 70 mg PO Q7D 06/30/21 06/30/21 Carbidopa-Levodopa ER 50-200Mg 1 tab PO BID 06/30/21 06/30/21 [Sinemet CR 50-200 mg] Cholecalciferol [Vitamin D3 (25 50 mcg PO DAILY 06/30/21 06/30/21 Mcg = 1000 Iu)] Folic Acid 1 mg PO DAILY 06/30/21 06/30/21 Losartan Potassium [Cozaar] 100 mg PO DAILY 06/30/21 06/30/21 Previous Rx's Medication Instructions Recorded Calcium Carb-Vit D 500Mg-5Mcg 2 each PO BID-W/MEALS #60 tab 07/02/21 [Oscal 500+D 5 Mcg (200 Iu)] HYDROcodone/APAP 5-325MG [[place] 1 tab PO Q6HR PRN 3 Days #12 tab 07/02/21 5-325] Allergies Allergy/AdvReac Type Severity Reaction Status Date / Time No Known Allergies Allergy Verified 06/02/23 15:37 Review of Systems ROS Other: All systems not noted in ROS Statement are negative. <Melanie Saavedra - Last Filed: 06/02/23 15:32> ROS Other: All systems not noted in ROS Statement are negative. <Carmencita Travis - Last Filed: 06/02/23 19:00> ROS Statement: Those systems with pertinent positive or pertinent negative responses have been documented in the HPI. Past Medical History Past Medical History: GERD/Reflux, Hyperlipidemia, Hypertension, Neurologic Disorder, Osteoarthritis (OA), Pneumonia, Rheumatoid Arthritis (RA), Thyroid Disorder Additional Past Medical History / Comment(s): RA/chronic pain, Parkinson's disease, FALLS, hypothyroid, R shoulder fracture/no surgery, benign colon polyp, diverticular disease. History of Any Multi-Drug Resistant Organisms: None Reported Past Surgical History: Adenoidectomy, Back Surgery, Breast Surgery, Orthopedic Surgery, Tonsillectomy, Tubal Ligation Additional Past Surgical History / Comment(s): Back fusions x2, total L knee arthroplasty, carpal tunnel release R side, cyst removed from L breast/benign. colonoscopy. Past Anesthesia/Blood Transfusion Reactions: No Reported Reaction Smoking Status: Former smoker - Past Family History Brother(s) Family Medical History: Cancer Additional Family Medical History / Comment(s): COLON CA Father Family Medical History: Cancer, Hyperlipidemia, Hypertension Additional Family Medical History / Comment(s): Father had thyroid cancer. He is . mother Family Medical History: Hyperlipidemia, Hypertension Additional Family Medical History / Comment(s): Mother is . <Melanie Saavedra - Last Filed: 06/02/23 15:32> General Exam <Melanie Saavedra - Last Filed: 06/02/23 15:32> Limitations: no limitations General appearance: alert, in no apparent distress Head exam: Present: atraumatic, normocephalic, normal inspection Respiratory exam: Present: normal lung sounds bilaterally. Absent: respiratory distress, wheezes, rales, rhonchi, stridor Cardiovascular Exam: Present: regular rate, normal rhythm, normal heart sounds. Absent: systolic murmur, diastolic murmur, rubs, gallop, clicks Extremities exam: Present: full ROM, tenderness, normal capillary refill, other (Swelling to left lower extremity, nonerythematous, DP and PT pulses 2+) Neurological exam: Present: alert, oriented X3 Psychiatric exam: Present: normal affect, normal mood Skin exam: Present: warm, dry, intact, normal color <Carmencita Travis - Last Filed: 06/02/23 19:00> - General Exam Comments Initial Comments: General: Well-appearing, nontoxic, no acute distress. Head: Normocephalic, atraumatic Eyes: PERRLA, EOMI ENT: Airway patent Chest: Nonlabored breathing Skin: No visual rash, normal skin tone Neuro: Alert and oriented 3 Musculoskeletal: No gross abnormalities I completed the quick note portion of this chart signed Melanie Saavedra PA-C (Melanie Saavedra) Course Vital Signs 06/02/23 06/02/23 15:33 18:26 Temperature 98.7 F 98.1 F Pulse Rate 64 59 L Respiratory 18 16 Rate Blood Pressure 129/58 123/73 O2 Sat by Pulse 97 98 Oximetry Medical Decision Making <Carmencita Travis - Last Filed: 06/02/23 19:00> - Medical Decision Making Was pt. sent in by a medical professional or institution (, PA, PEER SUPPORT SPECIALIST, urgent care, hospital, or senior care...) When possible be specific @ -No Did you speak to anyone other than the patient for history (EMS, parent, family, police, friend...)? What history was obtained from this source @ -No Did you review nursing and triage notes (agree or disagree)? Why? @ -I reviewed and agree with nursing and triage notes Were old charts reviewed (outside hosp., previous admission, EMS record, old EKG, old radiological studies, urgent care reports/EKG's, senior care records)? Report findings @ -No old charts were reviewed Differential Diagnosis (chest pain, altered mental status, abdominal pain women, abdominal pain men, vaginal bleeding, weakness, fever, dyspnea, syncope, headache, dizziness, GI bleed, back pain, seizure, CVA, palpatations, mental health, musculoskeletal)? @ -DVT, cellulitis, bakers cyst, meniscal tear, this list is not all inclusive Differential Musculoskeletal Muscular strain, contusion, ligament sprain, fracture, arthritis, septic arthritis, bursitis, cellulitis, muscle spasm, nerve compression, DVT, arterial occlusion, herpes zoster, electrolyte abnormality, tumor.... This is not meant to be in all inclusive list EKG interpreted by me (3pts min.). @ -none X-rays interpreted by me (1pt min.). @ -None done CT interpreted by me (1pt min.). @ -None done U/S interpreted by me (1pt. min.). @ -Ultrasound left lower external he shows no evidence of DVT, complex fluid collection behind the left knee What testing was considered but not performed or refused? (CT, X-rays, U/S, labs)? Why? @ -X-ray of left knee was considered, patient declines, patient has been ambulating and has not had significant injury What meds were considered but not given or refused? Why? @ -None Did you discuss the management of the patient with other professionals (professionals i.e. , PA, PEER SUPPORT SPECIALIST, lab, RT, psych nurse, manager social, logistics program manager, teacher, learning officer, case technician)? Give summary @ -No Was smoking cessation discussed for >3mins.? @ -No Was critical care preformed (if so, how long)? @ -No Were there social determinants of health that impacted care today? How? (Homelessness, low income, unemployed, alcoholism, drug addiction, transportation, low edu. Level, literacy, decrease access to med. care, alf, rehab)? @ -No Was there de-escalation of care discussed even if they declined (Discuss DNR or withdrawal of care, Hospice)? DNR status @ -No What co-morbidities impacted this encounter? (DM, HTN, Smoking, COPD, CAD, Cancer, CVA, ARF, Chemo, Hep., AIDS, mental health diagnosis, sleep apnea, morbid obesity)? @ -None Was patient admitted / discharged? Hospital course, mention meds given and route, prescriptions, significant lab abnormalities, going to OR and other pertinent info. @ -Discharged. Patient presented to the emergency department for chief complaint of left leg swelling x1 week. She states that this seems to be getting worse today. She denies chest pain, shortness of breath. Ultrasound of the left lower extremity was obtained which shows no evidence for DVT, complex fluid collection behind the knee. Patient was advised on findings of ultrasound. Advised to utilize compression stockings and Deshawn bandage as well as anti-inflammatories. Patient agreeable and understanding. Patient will follow up with orthopedics and her PCP. Strict return precautions discussed. Patient stable at time of discharge. Case discussed with Dr. Jewell Undiagnosed new problem with uncertain prognosis? @ -No Drug Therapy requiring intensive monitoring for toxicity (Heparin, Nitro, Insulin, Cardizem)? @ -No Were any procedures done? @ -No Diagnosis/symptom? @ -left lower extremity swelling Acute, or Chronic, or Acute on Chronic? @ -acute Uncomplicated (without systemic symptoms) or Complicated (systemic symptoms)? @ -uncomplicated Side effects of treatment? @ -No Exacerbation, Progression, or Severe Exacerbation? @ -No Poses a threat to life or bodily function? How? (Chest pain, [place], [place], pneumonia, PE, COPD, DKA, ARF, appy, cholecystitis, CVA, Diverticulitis, Homicidal, Suicidal, threat to staff... and all critical care pts) @ -No (Carmencita Travis) Disposition <Melanie Saavedra - Last Filed: 06/02/23 15:32> Is patient prescribed a controlled substance at d/c from ED?: No <Carmencita Travis - Last Filed: 06/02/23 19:00> Clinical Impression: Bakers cyst, Left leg swelling Disposition: HOME SELF-CARE Condition: Stable Instructions (If sedation given, give patient instructions): [place] Cyst (ED) Additional Instructions: Follow up with your primary care provider and orthopedics. Return to the emergency department for new or worsening symptoms. Referrals: Evgeny Erickson DO [Primary Care Provider] - 1-2 days Faisal Delacruz MD [STAFF PHYSICIAN] - 1-2 days Elder Salamanca MD [STAFF PHYSICIAN] - 1-2 days
--- NOTE | 2023-06-02 17:02 | US ---
EXAMINATION TYPE: US venous doppler duplex LE LT DATE OF EXAM: 06/02/2023 4:50 PM COMPARISON: NONE CLINICAL INDICATION: Female, 68 years old with history of Left leg pain and swelling; SIDE PERFORMED: left TECHNIQUE: The lower extremity deep venous system is examined utilizing real time linear array sonog nicolasa with graded compression, doppler sonography and color-flow sonography. VESSELS IMAGED: Common Femoral Vein Deep Femoral Vein Greater Saphenous Vein * Femoral Vein Popliteal Vein Small Saphenous Vein * Proximal Calf Veins (* superficial vessels) Limited exam due to vessel size and arterial shadow Left Leg: Appears negative for DVT. Vessels appear small. Posterior knee complex fluid collection = 7.1x 2.8 x 3.0cm IMPRESSION: 1. Left lower extremity ultrasound negative for deep venous thrombosis. 2. Complex collection left posterior knee fossa
[2023-06-02 19:04] VITALS: BP 123/73; PULSE 59; RESP 16; TEMP 98.1
== END 2023-06-02 18:38 | disposition home or self-care (01) ==
LOC: EC 15:14
DX: M71.22 Synovial cyst of popliteal space [Baker], left knee (principal); I10 Essential (primary) hypertension; E78.5 Hyperlipidemia, unspecified; E03.9 Hypothyroidism, unspecified; Z79.890 Hormone replacement therapy; Z79.899 Other long term (current) drug therapy; Z87.891 Personal history of nicotine dependence
CPT/HCPCS: 99283

== ENCOUNTER → 2024-02-24 | Outpatient (CLI) | payer MEDICARE ==
--- NOTE | 2024-02-24 11:58 | BD ---
EXAMINATION TYPE: Axial Bone Density DATE OF EXAM: 02/24/2024 CLINICAL HISTORY: 68 years old Female. ICD-10 CODE: M85.89 OTHER DISORDERS OF BONE Height: 62.5 Weight: 187 FRAX RISK QUESTIONS: Family History (Parent hip fracture): no History of Fracture in Adulthood: yes Secondary Osteoporosis: no Rheumatoid Arthritis: yes RISK FACTORS HISTORY OF: Surgery to Spine: yes When: 2001 MEDICATIONS: Thyroid Medications: yes Which medication: Synthroid How Lon+ years Osteoporosis Medications: no EXAM MEASUREMENTS: Bone mineral densitometry was performed using the Latio System. Bone mineral density about the R hip (g/cm2): 0.893 Bone mineral density about the L hip (g/cm2): 0.905 T Score values are as follows: -----R Neck: -1.3 -----L Neck: -1.3 -----R Total: -0.9 -----L Total: -0.8 Z Score values are as follows: -----R Neck: -0.2 -----L Neck: -0.1 -----R Total: 0.0 -----L Total: 0.1 Bone mineral density has: Decreased -0.1% since study of: 10-01-2020 Bone mineral density about the L Wrist (g/cm2): 0.585 T Score values are as follows: -----Dist. R+U: -2.4 -----Prox. R+U: -1.5 -----Radius total: -1.5 Z Score values are as follows: -----Dist. R+U: -0.8 -----Prox. R+U: 0.1 -----Radius total: 0.1 Bone mineral density has: Decreased % since study of: 10-01-2020 FRAX%s: The graph provided illustrates a 17.9% chance for a major osteoporotic fx and a 2.1% chance f or the hips probability for fx in 10 years time. IMPRESSION: Osteopenia (T Score between -2.5 and -1). There is slightly increased risk of fracture and the patient may be considered for treatment. Re-Screen 2-5 years. NOTE: T-SCORE=SD OF THE YOUNG ADULT MEAN.
--- NOTE | 2024-02-28 09:27 | MM ---
Reason for Exam: Screening (asymptomatic). Last mammogram was performed 1 year(s) and 7 month(s) ago. Patient History: Menarche at age 12. First Full-Term at age 21. Postmenopausal. Hormonal Contraceptives for 6 months. 1989, Excisional Biopsy on the Left side. Risk Values: Mima 5 year model risk: 2.0%. NCI Lifetime model risk: 6.7%. Prior Study Comparison: 05/18/2018 Bilateral Screening Mammogram, [facility]. 06/08/2019 Bilateral Screening Mammogram, [facility]. 07/23/2022 Bilateral MG screening mammo w CAD, [facility]. Tissue Density: There are scattered areas of fibroglandular density. Findings: Analyzed By CAD. There is no suspicious group of microcalcifications or new suspicious mass in either breast. Overall Assessment: Benign, BI-RAD 2 Management: Screening Mammogram of both breasts in 1 year. . Patient should continue monthly self-breast exams. A clinical breast exam by your physician is recommended on an annual basis. This exam should not preclude additional follow-up of suspicious palpable abnormalities. Note on Mima scores and lifetime risk: 1. A Mima score greater than 3% is considered moderate risk. If this is the case, consider specialist referral to assess eligibility for a risk reducing agent. 2. If overall lifetime risk for the development of breast cancer is 20% or higher, the patient may qualify for future screening with alternating mammogram and breast MRI. Electronically signed and approved by: Everett Peterson M.D. Radiologis
== END | disposition home or self-care (01) ==
LOC: RADMAMWWP 07:35
PROVIDERS: ATTEND Family Medicine
DX: Z12.31 Encounter for screening mammogram for malignant neoplasm of breast (principal); M85.89 Other specified disorders of bone density and structure, multiple sites; R92.323 Mammographic fibroglandular density, bilateral breasts; Z78.0 Asymptomatic menopausal state
CPT/HCPCS: 77067; 77080

== ENCOUNTER → 2024-05-25 | Outpatient (CLI) | payer MEDICARE ==
--- NOTE | 2024-05-25 11:51 | XR ---
EXAMINATION TYPE: XR shoulder complete 3 views LT DATE OF EXAM: 05/25/2024 Comparison: None Clinical History: 69-year-old female [id number] LT SHLD PAIN Findings: There is severe degenerative change of the glenohumeral joint with loss of cartilage and joint space and bone on bone contact. Subchondral sclerosis and marginal spurring is present. Inferior joint subl uxation. Prominent bony irregularity at the greater tuberosity with some fragments and osseous readin g posterior subacromial/subdeltoid bursa measuring up to 2.1 cm. Some inferior acromial spurring also noted. AC joint appears intact. Impression: 1. Severe [id number] glenohumeral joint OA. 2. Inferior glenohumeral joint subluxation suggests some neuromuscular insufficiency. Given the irreg ularity at the greater tuberosity, possibly due to instability from full-thickness rotator cuff tear. 3. Loose bodies and osseous debris in the posterior bursa measuring up to 2.1 cm. 4. No acute fracture identified. [facility], , 05/25/2024 11:49 AM
== END | disposition home or self-care (01) ==
LOC: RADXRYALE 10:38
PROVIDERS: ATTEND Physician Assistant